=== PATIENT | male | born 1950 | race Caucasian/White ===

== ENCOUNTER 2020-02-22 09:37 | Observation (INO) | payer MEDICARE, SELFPAY ==
[2020-02-22] VITALS (13 sets, daily range): BP systolic 120–149; BP diastolic 67–95; PULSE 65–90; RESP 12–20; TEMP 36.4–36.7; O2SAT 97–100; BMI 30.7
--- NOTE | ~2020-02-22 | MR_ITS ---
EXAMINATION: MR brain/brain stem wo/w con DATE: 02/22/2020 17:29 INDICATION: Stroke TECHNIQUE: Magnetic resonance imaging (MRI) of the brain and brainstem was performed without intraven ous contrast. Sequences included sagittal and axial T1-weighted SE, axial diffusion-weighted FS SE, a xial T2*-weighted GRE, axial T2-weighted FLAIR, and axial T2-weighted FSE. Postcontrast axial and cor onal T1-weighted SE was obtained. Apparent diffusion coefficient (ADC) maps were created. COMPARISON: Head CT dated 02/22/2020 FINDINGS: There are no areas of restricted diffusion to suggest acute infarction. Small old lacunar infarcts at the bilateral lentiform nuclei and anterior limb of the left internal capsule. No intracranial hemor rhage or abnormal intracranial mass lesion. There are scattered areas of nonspecific increased T2-hiwot ghted signal intensity in the cerebral white matter, predominantly involving the deep and periventric ular white matter which is within normal limits for age. There are no intraparenchymal signal abnorma lities seen on the other pulse sequences. The ventricles are symmetric and normal in size. There are no abnormal extra-axial fluid collections. Flow voids are seen in the cerebral arteries on the T2-hiwot ghted sequences consistent with their expected patency. Right vertebral artery is either absent or di minutive. Changes of bilateral intraocular lens replacement. Visualized orbits and soft tissues are unremarkable. There are no areas of abnormal enhancement on the post contrast images. IMPRESSION: 1. No acute intracranial process. 2. Small old lacunar infarcts at the bilateral lentiform nuclei and at the anterior limb of the left internal capsule. 3. Minimal nonspecific scattered periventricular predominant white matter T2 hyperintensity likely se quela of chronic small vessel ischemic disease. Reviewed, dictated and finalized at location A. SPORTATION OFFICER IMPRESSION: 1. No acute intracranial process. 2. Small old lacunar infarcts at the bilateral lentiform nuclei and at the ante rior limb of the left internal capsule. 3. Minimal nonspecific scattered periventricular predominant white matter T2 hy perintensity likely sequela of chronic small vessel ischemic disease.
--- NOTE | ~2020-02-22 | CT_ITS ---
EXAMINATION: CT brain wo con DATE: 02/22/2020 10:57 INDICATION: Dizziness TECHNIQUE: Computed tomography (CT) of the head was performed without intravenous contrast. Sagittal and coronal reconstructions were performed. The mA was adjusted according to patient size. Iterative reconstruction technique was employed. The dose-length product was 605.33 mGy-cm. COMPARISON: None FINDINGS: No acute intracranial hemorrhage, acute infarction or abnormal extra axial fluid collection. Small ol d lacunar infarcts at the left lentiform nucleus and anterior limb of the left internal capsule. Vent ricles are normal and symmetric. No mass/mass effect. Changes of bilateral intraocular lens replaceme nt. The orbits and mastoid air cells are normal. Mild mucosal thickening the bilateral ethmoid sinuse s and an indolent of procedures along the medial dover of the left and right maxillary sinuses. Small amount of intracranial calcified cerebral atherosclerosis at the carotid siphons. IMPRESSION: 1. No acute intracranial process. 2. Couple small old lacunar infarcts at the left lentiform nucleus and anterior limb of the left inte rnal capsule. Reviewed, dictated and finalized at location A. SAFETY FIELD SPECIALIST IMPRESSION: 1. No acute intracranial process. 2. Couple small old lacunar infarcts at the left lentiform nucleus and anterior limb of the left internal capsule.
--- NOTE | ~2020-02-22 | XR_ITS ---
XR chest 1V portable DATE: 02/22/2020 11:24 INDICATION: Dizziness TECHNIQUE: Portable AP upright views on 02/22/2020 at 1116 and 1117 hours COMPARISON: 11/30/2018 PA and lateral chest FINDINGS: Normal heart size. There is aortic tortuosity. No hilar or mediastinal enlargement. No pulmonary infiltrate or consolidation, pleural effusion or pulmonary vascular congestion or pneumo thorax is detected. Osteoarthritic change at the glenohumeral joints and bilateral chronic rotator cuff atrophy. Degenera tive spurring of the thoracic spine. IMPRESSION: No active cardiopulmonary disease Reviewed, dictated and finalized at location A. KER MACHINE OPERATOR
--- NOTE | ~2020-02-22 | US_ITS ---
EXAMINATION: US carotid duplex BI DATE: 02/23/2020 10:16 INDICATION: Infarcts in the basal ganglia. TECHNIQUE: Grayscale, color Doppler, and pulsed Doppler images of the cervical carotid arteries were obtained. The degree of vessel stenosis is placed in one of the following categories: normal, <50%, 5 0-69%, >=70% but less than near-occlusion, near-occlusion, or total occlusion. Note that percent sten osis relative to normal distal artery lumen diameter is indirectly measured from velocity measurement s as described by Brad, et al. Radiology 2003; 229:340-346. COMPARISON: None. FINDINGS: RIGHT: The right common carotid artery (CCA) peak systolic velocity (PSV) is 78 cm/s. The right internal car otid artery (ICA) PSV is 51 cm/s. The right ICA end-diastolic velocity (EDV) is 10 cm/s. The right IC A/CCA PSV ratio is 0.7. Grayscale and color Doppler images yield an estimate of <50% diameter reducti on from plaque in the ICA. There is antegrade flow in the right vertebral artery. LEFT: The left CCA PSV is 75 cm/s. The left ICA PSV is 49 cm/s. The left ICA EDV is 16 cm/s. The left ICA/C CA PSV ratio is 0.7. Grayscale and color Doppler images yield an estimate of <50% diameter reduction from plaque in the ICA. There is antegrade flow in the left vertebral artery. IMPRESSION: 1. <50% stenosis in the right internal carotid artery. 2. <50% stenosis in the left internal carotid artery. Reviewed, dictated and finalized at location B. MAKER
--- NOTE | 2020-02-22 09:51 | ECG_ITS ---
Measurements Intervals [place] Rate: 90 P: 51 SD: 163 QRS: -1 QRSD: 86 T: 43 QT: 338 QTc: 415 Interpretive Statements SINUS RHYTHM EARLY PRECORDIAL R/S TRANSITION PEAKED T WAVES- CONSIDER HYPERKALEMIA OR ISCHEMIA BASELINE ARTIFACT- I, III, AVL, AVF ABNORMAL ECG Electronically Signed On 02-22-2020 10:29:48 BEAD CUTTER by Brandon Cisneros D.O.
[2020-02-22 10:02] LABS: Basophils Absolute Auto 0.1 K/mm3 (0.0-0.1); Basophils Percent Auto 0.9 % (0.2-1.2); Eosinophils Absolute Auto 0.1 K/mm3 (0-0.3); Eosinophils Percent Auto 1.9 % (0-4.4); Hematocrit 44.1 % (42.0-52.0); Hemoglobin 14.9 g/dL (14.0-18.0); Immature Granulocyte Absolute 0.02 K/mm3 (0.00-0.031); Immature Granulocyte Percent A 0.3 % (0-0.5); Lymphocytes Absolute Auto 1.62 K/mm3 (0.9-3.2); Lymphocytes Percent Auto 28.1 % (18.3-44.2); Mean Corpuscular HGB Conc 33.8 g/dl (32-36); Mean Corpuscular Hemoglobin 30.1 pg (26-34); Mean Corpuscular Volume 89.1 fl (80-100); Monocytes Absolute Auto 0.5 K/mm3 (0.1-0.6); Neutrophils Absolute Auto 3.4 K/mm3 (1.3-6.7); Neutrophils Percent Auto 59.8 % (45.5-73.1); Platelet Count Result 188 k/mm3 (150-375); Red Blood Count 4.95 M/mm3 (4.6-6.20); Red Cell Distribution Width 12.5 % (11.5-14.5); White Blood Count 5.8 K/mm3 (4.5-10.0)
[2020-02-22 10:16] LABS: Alanine Aminotransferase 21 U/L (4-50); Albumin Level 4.3 g/dL (3.5-5.1); Alkaline Phosphatase 99 U/L (38-126); Anion Gap 7 mmol/L (8-16); Aspartate Amino Transferase 27 U/L (17-59); Bilirubin,Total 0.8 mg/dL (0.2-1.3); Blood Urea Nitrogen 18 mg/dL (9-20); Calcium 9.1 mg/dL (8.4-10.2); Carbon Dioxide 32 mmol/L (22-30); Chloride 98 mmol/L (98-107); Estimated CRCL calculation 90 ml/min; Estimated Glomerular Filt Rate > 60; Glucose 124 mg/dL (75-110); Potassium 4.6 mmol/L (3.4-5.0); Sodium 137 mmol/L (137-145)
--- NOTE | 2020-02-22 10:42 | ED.DIZZY ---
HPI - Dizziness General Chief Complaint: Dizziness Stated Complaint: Dizzy Time Seen by Provider: 02/22/20 10:02 Source: patient Mode of arrival: ambulatory Limitations: no limitations History of Present Illness HPI Narrative: 69 years old white male presented to the ED because of dizziness, constant all the time, started 4 days ago. Gets worse with movement and intermittent nausea. Patient denies any fever, chills, vomiting, headache, sore throat, chest pain, shortness of breath, back pain, tingling or numbness. Patient lives alone. Patient drove himself to the emergency room. Patient report history of intermittent dizziness. Related Data Home Medications Medication Instructions Recorded Confirmed albuterol sulfate 90 mcg/actuation 1 inhalation INHALATION Q4H 01/31/19 09/13/19 aerosol inhaler duloxetine 20 mg capsule,delayed 20 mg PO BID 01/31/19 09/13/19 release furosemide 20 mg tablet 20 mg PO QAM 01/31/19 09/13/19 gabapentin 300 mg capsule 300 mg PO DAILY 01/31/19 09/13/19 meloxicam 15 mg tablet 15 mg PO DAILY 01/31/19 09/13/19 metoclopramide HCl 10 mg tablet 10 mg PO Q6H PRN 01/31/19 09/13/19 modafinil 200 mg tablet 200 mg PO QAM 01/31/19 09/13/19 omega-3 fatty acids 1,000 mg 1,000 mg PO DAILY 01/31/19 09/13/19 capsule omeprazole 40 mg capsule,delayed 40 mg PO DAILY 01/31/19 09/13/19 release ranitidine HCl 150 mg tablet 150 mg PO DAILY 01/31/19 09/13/19 trazodone 100 mg tablet 50 mg PO BID 01/31/19 09/13/19 atorvastatin 20 mg tablet 20 mg PO DAILY 09/13/19 09/13/19 azelastine 0.15 % (205.5 mcg) 205.5 mcg NASAL DAILY 09/13/19 09/13/19 nasal spray glucosamine sulfate 1,000 mg 2,000 mg PO DAILY cap 09/13/19 09/13/19 capsule lisinopril 10 mg tablet 10 mg PO DAILY 09/13/19 09/13/19 Allergies Allergy/AdvReac Type Severity Reaction Status Date / Time No Known Allergies Allergy Unverified 09/13/19 08:40 Review of Systems Review of Systems: Narrative: CONSTITUTIONAL: Denies fever, chills, or sweats. EYES: Denies visual changes, redness, or discharge. ENT: Denies rhinorrhea, congestion, sore throat, or otalgia. CARDIOVASCULAR: Denies chest pain, palpitations, or edema. RESPIRATORY: Denies cough or dyspnea. GASTROINTESTINAL: Denies abdominal pain, nausea, vomiting, or diarrhea. GENITOURINARY: Denies dysuria or hematuria. SKIN: Denies rash or itching. MUSCULOSKELETAL: Denies back pain, joint pain, or myalgia. NEUROLOGIC: Denies headache, numbness, or weakness. PSYCHIATRIC: Denies anxiety or depression. PMFSH Past Medical History Medical History Diabetes Myoclonus Family History Family History Father Diabetes mellitus Heart disease Mother Heart disease Sibling Cancer Social History Social History Smoking status: Never smoker Second hand tobacco smoke exposure: Yes Gender identity (if verbalized by the patient): Male Exam Narrative: Exam Narrative: General appearance: Well-developed, well-nourished Skin: Normal color Head: Normocephalic, nontraumatic Eyes: Clear conjunctiva ENT: Oropharynx normal, ears normal, nose normal Neck: Supple, nontender Chest and respiratory: Airway patent, no respiratory distress, no accessory muscle use Heart: Regular rate/rhythm Abdomen: Soft, nontender, no organomegaly, quiet bowel sounds Vascular: Normal peripheral pulses, normal capillary refill. Musculoskeletal: Normal range of motion, nontender back Neurologic: Alert and oriented ?3, PORCELAIN BUILDUP ASSISTANT is normal as tested, no gross motor deficit Course Course Emergency Course
[2020-02-22] MEDS: SODIUM CHLORIDE 0.9% IV 1,000 ML 999 ML IV CONT (10:50)
--- NOTE | 2020-02-22 10:51 | PC.NURSE ---
Pt to CT scan via stretcher.
[2020-02-22 11:15] LABS: Troponin I < 0.012 ng/mL (0.000-0.034)
[2020-02-22 11:18] LABS: Add Urine Microscopic? NO; Appearance Urine Clear (Clear); Bilirubin Urine Negative (Negative); Blood Urine Negative (Negative); Color Urine Yellow (Yellow); Glucose Urine UA Negative (Negative); Ketones Urine Negative (Negative); Leukocyte Esterase Ur Negative LEU/UL (Negative); Nitrate Urine Negative (Negative); Protein Urine Negative (Negative); Specific Grav Ur 1.015 (1.001-1.035); Urobilinogen Urine Negative mg/dL (<2.0)
[2020-02-22] MEDS: ASPIRIN 81 MG CHEWABLE TABLET 324 MG PO (13:05)
--- NOTE | 2020-02-22 14:14 | ADMGEN ---
This patient, Emiliano Flores, was admitted to Medical Room 343-01. Patient/family oriented to hospital policies and general routines including ID bracelet, bed and alarms, visiting hours, pain management, procedures, bathroom and other care routines, personal items, smoking policy, room service/diet, and visiting hours. Information on how to activate the Rapid Response Team has been discussed. Patient/Family are encouraged to report perceived risks to care and to ask questions if they do not understand what they are told or what they should do.
--- NOTE | 2020-02-22 15:15 | PM.IMHP ---
H&P: HPI History of Present Illness Date/Time: 02/22/20 15:15 Chief complaint: Dizziness. Narrative: Emiliano Flores is 69-year-old male with hypertension, hyperlipidemia, and findings of old CVAs on brain CT today who presented to the emergency department earlier today via private vehicle from home with complaints of dizziness. As soon as he awoke from sleep on Wednesday he began feeling dizzy, which he further qualifies as vertigo, describing poor balance and feelings of motion when not moving. It seemed to be a bit better on Wednesday however has been nearly constant since Wednesday. Occasionally it seems to be worse when turning his head to the right, however not always. It seems to be somewhat better when lying supine. He has had some slight nausea as well as tinnitus, left greater than right, but he goes on to say that that is not necessarily a new finding. He denies acute auditory and visual changes, headache, recent illness, fever, chills, sweats, focal weakness, paresthesias, dysarthria, and facial droop. He has no known history of stroke however brain CT today showed findings of old strokes. Of note, the patient's EKG had an abnormal reading with mention of peak T-waves suggestive of possible hyperkalemia or ischemia. His potassium level is well within normal limits and he has not had chest pain or exertional chest pain. Review of Systems Review of Systems: Narrative: Twelve systems were reviewed with pertinent positives and negatives as per HPI. No recent cold or flu symptoms. He has idiopathic peripheral neuropathy, mainly in his lower legs which is unchanged. No chest pain, palpitations, or history of cardiac dysrhythmia. He denies vomiting. He has occasional dysphagia and reports a history of EGD and esophageal dilatation. Except as documented, all other systems were reviewed and are negative. [facility] Past Medical History Medical History (Updated 02/22/20 @ 22:17 by Nandini Chavez PA-C) Asthma Benign prostatic hyperplasia Depression with anxiety Dyslipidemia Gastroesophageal reflux disease History of kidney stones Hypertension Narcolepsy Obstructive sleep apnea Compliant with CPAP at nighttime. Restless leg syndrome Seasonal allergies Surgical History Surgical History (Updated 02/22/20 @ 14:46 by Nandini Chavez PA-C) History of left inguinal hernia repair History of lithotripsy Status post excision of lipoma Posterior neck. Family History Family History (Updated 02/22/20 @ 14:46 by Nandini Chavez PA-C) Father Diabetes mellitus Heart disease Mother Heart disease Sibling Leukemia Social History Social History (Updated 02/22/20 @ 22:14 by Nandini Chavez PA-C) Social History: Surrogate decision maker: Susu Hurley, sister. Code status: Full code. Smoking status: Never smoker Second hand tobacco smoke exposure: Yes Alcohol intake: never Drinks per week: 0 Substance use: never Additional living arrangements comments: The patient lives in his own home in [facility]. 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 Gender identity (if verbalized by the patient): Male Spiritual care concerns: No Meds Home Medications and Allergies Home Medications Medication Instructions Recorded Confirmed Type albuterol sulfate 90 mcg/actuation 1 inhalation INHALATION Q4H PRN 01/31/19 02/22/20 History aerosol inhaler duloxetine 20 mg capsule,delayed 20 mg PO BID 01/31/19 02/22/20 History release gabapentin 300 mg capsule 600 mg PO BID 01/31/19 02/22/20 History meloxicam 15 mg tablet 15 mg PO PRN PRN 01/31/19 02/22/20 History modafinil 200 mg tablet 200 mg PO QAM 01/31/19 02/22/20 History omega-3 fatty acids 1,000 mg 1,000 mg PO DAILY 01/31/19 02/22/20 History capsule omeprazole 40 mg capsule,delayed 40 mg PO QMWFSU 01/31/19 02/22/20 History release
[2020-02-22] MEDS: PRAMIPEXOLE 0.125 MG TABLET BY MOUTH (22:04)
[2020-02-22] MEDS: traZODone HCL 50 MG TABLET PO (22:04)
[2020-02-23] VITALS: PULSE 73
[2020-02-23 04:00] VITALS: PULSE 70
[2020-02-23 06:00] VITALS: BP 119/82; PULSE 83; RESP 16; TEMP 36.5; O2SAT 99
[2020-02-23 06:02] LABS: Anion Gap 5 mmol/L (8-16); Blood Urea Nitrogen 13 mg/dL (9-20); Calcium 8.6 mg/dL (8.4-10.2); Carbon Dioxide 32 mmol/L (22-30); Chloride 101 mmol/L (98-107); Estimated CRCL calculation 103 ml/min; Estimated Glomerular Filt Rate > 60; Glucose 95 mg/dL (75-110); Magnesium 2.1 mg/dL (1.6-2.3); Sodium 138 mmol/L (137-145)
[2020-02-23 08:00] VITALS: PULSE 70
--- NOTE | 2020-02-23 08:21 | ECG_ITS ---
Measurements Intervals [place] Rate: 80 P: 51 VA: 161 QRS: 1 QRSD: 90 T: 37 QT: 367 QTc: 424 Interpretive Statements SINUS RHYTHM ATRIAL PREMATURE COMPLEX EARLY PRECORDIAL R/S TRANSITION BASELINE ARTIFACT- V3 BORDERLINE ECG Electronically Signed On 02-23-2020 10:38:38 LOUVER DOOR ASSEMBLER by Brandon Cisneros D.O.
[2020-02-23] MEDS: ASPIRIN 81 MG CHEWABLE TABLET PO (08:29)
[2020-02-23] MEDS: DULoxetine HCL 20 MG CAPSULE.DR PO (08:29)
[2020-02-23] MEDS: PANTOPRAZOLE 40 MG TABLET PO (08:29)
[2020-02-23] MEDS: ATORVASTATIN 20 MG TABLET PO (08:29)
[2020-02-23] MEDS: OMEGA 3 POLYUNSAT FATTY ACIDS 1 GM CAP PO (08:30)
[2020-02-23] MEDS: LOSARTAN POTASSIUM 50 MG TABLET PO (08:30)
[2020-02-23] MEDS: modafiniL (*CRX) 200 MG TABLET PO (08:34)
[2020-02-23 12:00] VITALS: PULSE 94
--- NOTE | 2020-02-23 12:57 | PM.DS ---
DS: Admitting Diagnosis Admitting Diagnosis Admitting Diagnosis: Dizziness. DS: Discharge Diagnosis Discharge Diagnosis (1) Vertigo: Code(s): R42 - Dizziness and giddiness Status: Acute (2) Abnormal EKG: Code(s): R94.31 - Abnormal electrocardiogram [ECG] [EKG] Status: Acute (3) Hypertension: Code(s): I10 - Essential (primary) hypertension Status: Acute (4) Dyslipidemia: Code(s): E78.5 - Hyperlipidemia, unspecified Status: Acute (5) RANDY (obstructive sleep apnea): Code(s): G47.33 - Obstructive sleep apnea (adult) (pediatric) Status: Acute DS: Summary Hospital Course Reason for hospitalization: Emiliano Flores is 69-year-old male with hypertension, hyperlipidemia, and findings of old CVAs on brain CT today who presented to the emergency department earlier today via private vehicle from home with complaints of dizziness. As soon as he awoke from sleep on Wednesday he began feeling dizzy, which he further qualifies as vertigo, describing poor balance and feelings of motion when not moving. It seemed to be a bit better on Wednesday however has been nearly constant since Wednesday. Occasionally it seems to be worse when turning his head to the right, however not always. It seems to be somewhat better when lying supine. He has had some slight nausea as well as tinnitus, left greater than right, but he goes on to say that that is not necessarily a new finding. He denies acute auditory and visual changes, headache, recent illness, fever, chills, sweats, focal weakness, paresthesias, dysarthria, and facial droop. He has no known history of stroke however brain CT today showed findings of old strokes. Of note, the patient's EKG had an abnormal reading with mention of peak T-waves suggestive of possible hyperkalemia or ischemia. His potassium level is well within normal limits and he has not had chest pain or exertional chest pain. Hospital Course: Patient was admitted as observation for evaluation of dizziness. The patient had MRI which demonstrated evidence of prior stroke but known due intercranial process. He a carotid Dopplers with demonstrated less than 50% stenosis bilaterally. On exam patient had reproducible vertigo with left-sided gaze and rotation of the head to the left. Physical therapy with consulted for Sandrine maneuvers. The patient did not have definitive improvement with Sandrine maneuvers but he tolerated the procedure without difficulty. Given his nystagmus and vertigo with position changes benign positional vertigo did was diagnosed. Physical therapy recommended continuing vestibular therapy on discharge. The patient was started on meclizine and discharged with a prescription. Patient's initial EKG did demonstrate peaked T-waves concerning for. The patient's repeat EKG demonstrated resolution of these findings. His electrolyte panel did not demonstrate evidence of hyperkalemia. He did not have evidence of ischemia on serial troponins. Patient had no chest pain or palpitations. He was discharged home on 02/23/2020 in stable condition. Time Spent with Patient Time attestation: Total time spent providing and/or coordinating discharge services: 35 minutes Exam Narrative: Exam Narrative: PHYSICAL EXAM: WEIGHT 86.5 kg BMI 30.8 General: no acute distress, well-developed well-nourished HEENT: mucous membranes are moist, edentulous, pupils are equal and reactive, head is normocephalic atraumatic Respiratory: clear to auscultation bilaterally, no increased work of breathing Cardiovascular: regular rate, regular rhythm, no murmurs Gastrointestinal: soft, nontender, normoactive bowel sounds Skin: non jaundice, no pallor Musculoskeletal: organic chemistry teacher strength equal bilaterally, no clubbing cyanosis or edema Neurological: nystagmus with rotation of the head to the left, cranial nerves otherwise intact, [id number] intact Psychiatric: appropriate mood and affect, pleasa
[2020-02-23] MEDS: MECLIZINE HCL 12.5 MG TABLET PO (13:48)
[2020-02-23] MEDS: MECLIZINE HCL 25 MG TABLET PO (13:51)
--- NOTE | 2020-02-23 22:20 | ECHO_ITS ---
Patient Info Name: Emiliano Flores Age: 69 years : 1950 Gender: Male Ht: 66 in Wt: 200 lbs BSA: 2.09 m2 HR: 90 bpm BP: 119 / 82 mmHg Technical Quality: Fair Exam Date: 02/23/2020 3:58 PM Exam Location: [facility] Pulmonary Exam Room: 343 Patient Status: Inpatient Admit Date: 02/22/2020 Staff Ordering Physician: Nandini Chavez PA-C Floor Installer: Meg Brenner RDCS Attending Provider: Isaak Duran MD Referring Physician: Kathy GARCIA; Exam Type: CA echo doppler color flow Study Info Indications - abnormal ekg Complete two-dimensional, color flow and Doppler transthoracic echocardiogram is performed with contrast to opacify the left ventricle and to improve the deliniation of the left ventricle endocardial borders. Contrast/Agitated Saline Contrast/Ag. Saline: Definity Amount: 1.00 ml Administered By: Tadeo Alcaraz, RN Summary 1. Left ventricular chamber dimension is normal. 2. Definity contrast administered improved wall motion interpretation. 3. Left ventricular systolic function is normal, estimated at 65-70%. 4. The left ventricular diastolic function is grade I diastolic dysfunction. 5. Tissue doppler E/e' is not calculated. 6. There is moderate aortic valve sclerosis. 7. No pulmonary hypertension, estimated pulmonary arterial systolic pressure is 31 mmHg. Left Ventricle Tissue doppler E/e' is not calculated. Definity contrast administered improved wall motion interpretation. Left ventricular chamber dimension is normal. Left ventricular systolic function is normal, estimated at 65-70%. The left ventricular diastolic function is grade I diastolic dysfunction. Right Ventricle Right ventricular chamber dimension is normal. Right ventricular systolic function is normal. Left Atria Left atrial chamber dimension is normal. Right Atria Right atrial chamber dimension is normal. Aortic Valve The aortic valve is trileaflet. There is moderate aortic valve sclerosis. There is no aortic valve stenosis. There is no aortic valve regurgitation. Pulmonic Valve There is no pulmonic regurgitation. Mitral Valve There is no mitral valve stenosis. There is no mitral valve regurgitation. Tricuspid Valve There is no tricuspid valve regurgitation. No pulmonary hypertension, estimated pulmonary arterial systolic pressure is 31 mmHg. Pericardium/Pleural There is no pericardial effusion. Inferior Vena Cava Normal inferior vena cava with >50% collapse upon inspiration consistent with normal right atrial pressure, 5 mmHg. Aorta The aortic root size at the sinus of Valsalva is normal. Left Ventricular Outflow Tract Name Value Normal LVOT 2D LVOT Diameter 2.0 cm LVOT Doppler LVOT Peak Gradient 7 mmHg LVOT Mean Gradient 4 mmHg LVOT VTI 23 cm LVOT VTI/AV VTI Ratio 0.8 LVOT Stroke Volume 73 ml LVOT CO 17.3 l/min LVOT CI
== END 2020-02-23 17:00 | disposition home or self-care (01) ==
LOC: ANHED 10:02 → ANH3MED 14:40
PROVIDERS: Physician Assistant; Admitting Provider Family Medicine; Emergency Provider Emergency Medicine; PCP Emergency Medicine; Visit Provider Internal Medicine
DX: R42 Dizziness and giddiness (principal); R94.31 Abnormal electrocardiogram [ECG] [EKG]; I10 Essential (primary) hypertension; E78.5 Hyperlipidemia, unspecified; G47.33 Obstructive sleep apnea (adult) (pediatric); Z86.73 Personal history of transient ischemic attack (TIA), and cerebral infarction without residual deficits
CPT/HCPCS: 36415; 70450; 70553; 71045; 80048; 80053; 81003; 83735; 84484; 85025; 93005; 93306; 93880; 96360; 97161; 97165; 99285; A9270; A9577; C8929; G0378; J7030; Q9957

== ENCOUNTER 2020-04-09 14:00 | Outpatient (RCR) | payer MEDICARE, SELFPAY ==
--- NOTE | 2020-03-12 15:19 | PTOPEVAL ---
INITIAL PHYSICAL THERAPY EVALUATION and PLAN OF CARE Thank you for referring Emiliano Flores Jr. to [facility].? Emiliano is scheduled to be seen for physical therapy? 1x/week for 4 weeks. Please review, sign, date and return this plan of care CASSIE. I agree with and certify that the following plan of care is medically necessary. Referring Physician Date Admitting Provider: Attending Provider: Jose Hawthorne MD Referring Provider: Krystyna Akers DO *PT Outpatient Evaluation Start: 03/12/20 13:51 Freq: Status: Active Protocol: Document 03/12/20 13:40 ZANE (Rec: 03/12/20 15:10 ZANE [id number]) Therapy Assessment Status Assessment Status Assessment Status Evaluation Outpatient Past Medical History Past Medical History Source of Past Medical History Recalled from Previous Visit, Confirmed with Patient/Family Neurological History Hx Other Neurological Disorders Yes: Neuropathy to feet. Cardiovascular History Hx Hypercholesterolemia Yes Hx Hypertension Yes Respiratory History Hx Asthma Yes Hx Bronchitis Yes Hx Sleep Apnea Yes Gastrointestinal History Hx Gastroesophageal Reflux Disease Yes Hx Hemorrhoids Yes Hx Hernia Yes Genitourinary History Hx Kidney Stones Yes Musculoskeletal History Hx Arthritis Yes: back, both knees worse in L Hematological History Hx Hematological Disorders No Significant History Endocrine History Hx Endocrine Disorders No Significant History HEENT History Hx Cataracts Yes: removed Hx Tonsillectomy Yes Integumentary History Hx Skin Disorders No Significant History Reproductive History Hx Reproductive Disorders No Significant History Psychosocial History Hx Anxiety Yes Hx Depression Yes Pain History Has Past Pain Affected Your Daily Life Yes: Left Knee Anesthesia History Hx Anesthesia Reactions No Significant History Evaluation Information Problem Diagnosis dizziness and giddiness Onset ~ 2 wks ago Subjective Information Had difficulty seeing, falling Query Text:As Reported By Patient/ against dover - spinning Family sensation, felt worse than being drunk Happened initially on a Wednesday, okay on Wednesday, came back on Wednesday, then morning came to emergency department - admitted to . Testing discovered that he had
--- NOTE | 2020-04-09 17:04 | PTOPEVAL ---
PHYSICAL THERAPY DISCHARGE SUMMARY Thank you for referring Emiliano Flores Jr. to [facility].? Emiliano was seen in PT x 5 visits. Gains were made towards goals set and he does not have the dizziness c/o's as he did initially. He is to continue with his HEP of VOR exercises. He is ready for d/c from PT to HEP. I agree with Emiliano's discharge from PT. Referring Physician Date Admitting Provider: Attending Provider: Jose Hawthorne MD Referring Provider: Krystyna Akers DO *PT Outpatient Evaluation Start: 03/12/20 13:51 Freq: Status: Active Protocol: Document 04/09/20 14:12 ZANE (Rec: 04/09/20 14:57 ZANE [email or web address]) Therapy Assessment Status Assessment Status Assessment Status Discharge Evaluation Information Problem Subjective Information Emiliano states that dizziness Query Text:As Reported By Patient/ felt like it was trying to Family come on all day - but didn't . Realizes that he bends over a lot at work. Did see Neurologist and Supervisor Liquefaction - both are going to run more tests. Also Pharmacy District Manager is also going to run tests. Pain Assessment Timing of Pain Assessment Timing of Pain Assessment Pre-Treatment Self Report Self Report Pain Level 0 Pain Score Pain Score 0: Self Report Vestibular Evaluation Vestibular Testing Sitting Head Thrust WNL Vestibular Testing Comments some dizziness with head shaking with fixation - but no nystagmas, head shaking without fixation - some dizziness for a second then went away Vestibular Balance Standing Balance: Firm Surface Eyes Open WNL for 30 Seconds Standing Balance: Firm Surface Eyes WNL Closed for 30 Seconds Standing Balance: Foam Surface Eyes Open WNL for 30 Seconds Standing Balance: Foam Surface Eyes WNL Closed for 30 Seconds Vestibular Balance Comments Dizziness Handicap Inventory - 40 General Exercise General Exercises Exercise Location vestibular - VOR Exercise Description walking - vertical head Query Text:Record Sets, Reps, movements, horizontal head Resistance, and Position movements - no dizziness, no loss of balance With glasses off: VOR 2 - Sitting - 1st trial - A and B ~ 18 apart 100 bps x 30 sec - trouble with technique
== END 2020-04-10 08:16 | disposition home or self-care (01) ==
LOC: ANHPT 14:00
PROVIDERS: PCP Emergency Medicine; Referring Provider Internal Medicine; Visit Provider Internal Medicine
DX: R42 Dizziness and giddiness (principal)
CPT/HCPCS: 97110; 97162

== ENCOUNTER 2020-04-15 13:04 | Outpatient (CLI) | payer MEDICARE, SELFPAY ==
--- NOTE | ~2020-04-15 | CT_ITS ---
EXAMINATION: CTA brain carotid DATE: 04/15/2020 13:31 INDICATION: Stroke. TECHNIQUE: Computed tomographic angiography (CTA) of the head was performed without and with 100 mL O mnipaque-350 intravenous contrast. CTA of the neck was performed with intravenous contrast. Automated exposure control and iterative reconstruction technique were employed. The dose-length product was 1 760.28 mGy-cm. Maximum intensity projection and volume rendered 3D-reconstructions were created by rosie sanches technologist on a separate workstation. COMPARISON: Head CT 02/22/2020, brain MRI 02/22/2020 FINDINGS: HEAD CTA: There are old lacunar infarcts involving the left basal ganglia and anterior limb left inte rnal capsule. There are scattered areas of low attenuation in the cerebral white matter, which is wit hin normal limits for the patient's age. There is no intracranial hemorrhage, acute infarction, or ab normal intracranial mass lesion. The ventricles are normal in size. There are likely changes of ocula r lens replacement surgeries. There is mild mucosal thickening in the ethmoid sinuses. There are trac e bilateral mastoid effusions. Left vertebral artery is dominant. There is no significant stenosis of basilar artery or the posterior cerebral arteries. There is no significant stenosis of the intracran ial internal carotid arteries or anterior or middle cerebral arteries. Anterior communicating artery is normal. The posterior communicating arteries are normal. There is no aneurysm. NECK CTA: There are no pathologically enlarged lymph nodes. There is no significant stenosis of the vertebral arteries. There is plaque in the proximal internal carotid arteries. There is 16% stenosis of the proximal right internal carotid artery relative to normal distal artery lumen diameter (NASCET criteria). There is 24% stenosis of the proximal left internal carotid artery relative to normal dis lenka artery lumen diameter. There is severe cervical and thoracic spondylosis. IMPRESSION: 1. Old infarcts involving the left basal ganglia and anterior limb left internal capsule. 2. 16% stenosis of the proximal right internal carotid artery relative to normal distal artery lumen diameter (NASCET criteria). 3. 24% stenosis of the proximal left internal carotid artery relative to normal distal artery lumen d iameter. Reviewed, dictated and finalized at location A. SHER HAND IMPRESSION: 1. Old infarcts involving the left basal ganglia and anterior limb left interna l capsule. 2. 16% stenosis of the proximal right internal carotid artery relative to ruben l distal artery lumen diameter (NASCET criteria). 3. 24% stenosis of the proximal left internal carotid artery relative to normal distal artery lumen diameter.
[2020-04-15 13:28] LABS: Estimated Glomerular Filt Rate > 60
== END 2020-04-15 13:05 | disposition home or self-care (01) ==
LOC: ANHIMG 13:07
PROVIDERS: PCP Emergency Medicine; Visit Provider Psychiatry & Neurology Neurology
DX: I63.9 Cerebral infarction, unspecified (principal); I65.23 Occlusion and stenosis of bilateral carotid arteries
CPT/HCPCS: 70496; 70498; Q9967

== ENCOUNTER 2020-05-06 08:55 | Outpatient (CLI) | payer MEDICARE, SELFPAY ==
--- NOTE | 2020-05-07 15:57 | WPDPFTINT ---
PFT Interpretation This is a pulmonary function test with pre and post-bronchodilator spirometry, plethysmography and diffusing capacity. The test was performed and results interpreted in accordance with the 2019 and 2005 ATS/ERS Task Force guidelines respectively using the Judah/Brittany reference equations. Findings: Spirometry: The contour of the inspiratory and expiratory flow tracing are normal. The pre bronchodilator FVC is 4.38 L, 115% predicted. The pre bronchodilator FEV1 is 3.58 L, 136% predicted. The FEV1: FVC ratio is 82%. The post bronchodilator FVC is 4.09 L, representing a 7% decrease. The post bronchodilator FEV1 is 3.50 L, representing a 2% decrease. Plethysmography: The total lung capacity is 6.46 L, 116% predicted. The functional residual capacity is 3.45 L, 119% predicted. The residual volume is 2.07 L, 93% predicted. Diffusing capacity: The absolute diffusion capacity is 25.1, 116% predicted. The diffusing capacity corrected for alveolar volume is 4.70, 130% predicted. Impression: The spirometry is normal without evidence of an obstructive abnormality. There is no significant improvement after inhaling a single dose of albuterol. The lung volumes are normal. The diffusing capacity is normal. There are no prior studies for comparison
--- NOTE | 2020-05-07 15:59 | WPDSIXMINUTE ---
Six Minute Walk This is a 6 minutes walk test. The test was performed and interpreted in accordance with the 2014 ERS/ATS task force guidelines. Findings: The patient's resting room air oxygen saturation measured by pulse oximetry was 97% and her heart rate was 91 bpm. Patient ambulated for 305 meters and oxygen saturation remained 90 to 97%. Heart rate at the end of the study was 96 bpm. There are no prior studies for comparison.
== END 2020-05-06 08:56 | disposition home or self-care (01) ==
PROVIDERS: PCP Emergency Medicine; Visit Provider Nurse Practitioner Family
DX: J45.909 Unspecified asthma, uncomplicated (principal); R06.02 Shortness of breath
CPT/HCPCS: 94060; 94375; 94618; 94726; 94729

== ENCOUNTER 2020-07-03 10:23 | Outpatient (CLI) | payer MEDICARE, SELFPAY ==
--- NOTE | 2020-07-03 11:30 | NEURO_ITS ---
Impression: # Complains of foot pain. # Normal nerve conduction study except right superficial peroneal nerve neuropathy. # No Tarsal Tunnel Syndrome. # Normal needle/EMG exam. # Clinical correlation recommended. Nerve Conduction Studies Anti Sensory Summary Table Stim Site NR Peak (ms) P-T Amp (?V) Site1 Site2 Delta-P (ms) Dist (cm) Jayant (m/s) Left Sup Fibular Anti Sensory (Ant Lat Mall) 14 cm 4.3 14.0 14 cm Ant Lat Mall 4.3 16.0 37 Right Sup Fibular Anti Sensory (Ant Lat Mall) NO RESPONSE 14 cm NR 14 cm Ant Lat Mall 16.0 Left Sural Anti Sensory (Lat Mall) Calf 4.0 5.9 Calf Lat Mall 4.0 16.0 40 Right Sural Anti Sensory (Lat Mall) Calf 3.3 18.4 Calf Lat Mall 3.3 16.0 48 Motor Summary Table Stim Site NR Onset (ms) O-P Amp (mV) Site1 Site2 Delta-0 (ms) Dist (cm) Jayant (m/s) Left Lateral Plantar Motor (ADM) Med Mall 5.1 1.9 Right Lateral Plantar Motor (ADM) Med Mall 5.5 0.6 Left Peroneal Motor (Vastus Med) Ankle 4.8 1.2 Popit Ankle 9.6 40.0 42 Popit 14.4 0.7 Right Peroneal Motor (Vastus Med) Ankle 4.5 0.6 Popit Ankle 9.2 39.0 42 Popit 13.7 0.4 Left Tibial Motor Run #1 (Abd Penn Brev) Ankle 5.2 3.7 Knee Ankle 9.7 41.0 42 Knee 14.9 3.1 Right Tibial Motor (Abd Penn Brev) Ankle 4.5 2.1 Knee Ankle 9.8 42.0 43 Knee 14.3 1.8 F Wave Studies NR F-Lat (ms) L-R F-Lat (ms) Left Peroneal (Mrkrs) (EDB) 55.99 1.02 Right Peroneal (Mrkrs) (EDB) 54.97 1.02 Left Tibial (Mrkrs) (Abd Hallucis) 56.19 0.29 Right Tibial (Mrkrs) (Abd Hallucis) 55.91 0.29 EMG Side Muscle Nerve Root Ins Act Fibs Amp Dur Recrt Comment Right AntTibialis Dp Br Fibular L4-5 Nml Nml Nml Nml Nml Right Gastroc Tibial S1-2 Nml Nml Nml Nml Nml Right Fibularis Long Sup Br Fibular L5-S1 Nml Nml Nml Nml Nml Right Flex Dig Long Tibial L5-S2 Nml Nml Nml Nml Nml Right Ext Dig Brev Dp Br Fibular L5, S1 Nml Nml Nml Nml Nml Left AntTibialis Dp Br Fibular L4-5 Nml Nml Nml Nml Nml Left Gastroc Tibial S1-2 Nml Nml Nml Nml Nml Left Fibularis Long Sup Br Fibular L5-S1 Nml Nml Nml Nml Nml Left Flex Dig Long Tibial L5-S2 Nml Nml Nml Nml Nml Left Ext Dig Brev Dp Br Fibular L5, S1 Nml Nml Nml Nml Nml Right QuadratusFem QuadFemoris L4-5, S1 Nml Nml Nml Nml Nml Left QuadratusFem QuadFemoris L4-5, S1 Nml Nml Nml Nml Nml MTDD
== END 2020-07-03 10:24 | disposition home or self-care (01) ==
PROVIDERS: PCP Emergency Medicine; Visit Provider Psychiatry & Neurology Neurology
DX: M79.606 Pain in leg, unspecified (principal); R26.9 Unspecified abnormalities of gait and mobility
CPT/HCPCS: 95886; 95911

== ENCOUNTER 2020-10-25 13:34 | Outpatient (CLI) | payer MEDICARE, SELFPAY ==
--- NOTE | ~2020-10-25 | US_ITS ---
EXAMINATION: US pelvic limited INDICATION: Benign prostatic hyperplasia TECHNIQUE: High-resolution ultrasound of the pelvis is performed. COMPARISON: None available FINDINGS: The bladder wall thickness is upper limits of normal measuring 4 mm. Prevoid volume is 428 cc. Postvoid volume is 3 cc. No bladder mass is identified. IMPRESSION: 1. Borderline wall thickening of the urinary bladder. Normal voiding. Reviewed, dictated and finalized at location B.
== END 2020-10-25 13:35 | disposition home or self-care (01) ==
PROVIDERS: PCP Emergency Medicine; Visit Provider Emergency Medicine
DX: N40.0 Benign prostatic hyperplasia without lower urinary tract symptoms (principal)
CPT/HCPCS: 76857

== ENCOUNTER 2021-05-21 09:23 | Outpatient (CLI) | payer MEDICARE, SELFPAY ==
[2021-05-21 10:29] LABS: Add Urine Microscopic? NO; Appearance Urine Clear (Clear); Bilirubin Urine Negative (Negative); Blood Urine Negative (Negative); Color Urine Straw (Yellow); Glucose Urine UA Negative (Negative); Ketones Urine Negative (Negative); Leukocyte Esterase Ur Negative LEU/UL (NEGATIVE); Nitrate Urine Negative (Negative); Protein Urine Negative (Negative); Specific Grav Ur 1.006 (1.001-1.035); Urobilinogen Urine Negative mg/dL (<2.0)
[2021-05-21 10:36] LABS: Hematocrit 44.9 % (42.0-52.0); Hemoglobin 14.8 g/dL (14.0-18.0); Mean Corpuscular Volume 87.9 fl (80-100); Mean Platelet Volume 9.1 fl (7.4-10.4); Platelet Count Result 187 k/mm3 (150-375); Red Blood Count 5.11 M/mm3 (4.6-6.20); Red Cell Distribution Width 13.2 % (11.5-14.5); White Blood Count 6.7 K/mm3 (4.5-10.0)
[2021-05-21 10:41] LABS: Alanine Aminotransferase 25 U/L (4-50); Alkaline Phosphatase 104 U/L (38-126); Anion Gap 4 mmol/L (8-16); Aspartate Amino Transferase 31 U/L (17-59); Bilirubin,Total 0.7 mg/dL (0.2-1.3); Blood Urea Nitrogen 16 mg/dL (9-20); Calcium 8.7 mg/dL (8.4-10.2); Carbon Dioxide 33 mmol/L (22-30); Chloride 100 mmol/L (98-107); Cholesterol 140 mg/dL (0-200); Estimated Glomerular Filt Rate > 60; Glucose 111 mg/dL (65-110); HDL Direct 38 mg/dL; Potassium 4.5 mmol/L (3.4-5.0); Sodium 137 mmol/L (137-145); Triglycerides 71 mg/dL (<150)
[2021-05-21 10:51] LABS: LDL Cholesterol Direct 81 mg/dL
[2021-05-21 11:11] LABS: Prostate Specific Antigen 0.5 ng/mL (< OR = 4.0)
[2021-05-21 11:30] LABS: Free T4 Free Thyroxine 0.87 ng/mL (0.78-2.19)
[2021-05-21 11:49] LABS: Hemoglobin A1C 5.3 % (<5.7)
[2021-05-21 12:59] LABS: Creatinine Urine 39.6 mg/dL
[2021-05-21 13:06] LABS: MALB Creatinine Ratio < 15.2 mg/g (0-30); Microalbumin Urine Random < 6.0 mg/L (0-16.7)
== END 2021-05-21 09:24 | disposition home or self-care (01) ==
LOC: ANHLAB 09:54
PROVIDERS: PCP Emergency Medicine; Visit Provider Emergency Medicine
DX: Z12.5 Encounter for screening for malignant neoplasm of prostate (principal); D64.9 Anemia, unspecified; F41.9 Anxiety disorder, unspecified; F32.9 Major depressive disorder, single episode, unspecified; I10 Essential (primary) hypertension; K21.00 Gastro-esophageal reflux disease with esophagitis, without bleeding; E78.5 Hyperlipidemia, unspecified; N40.0 Benign prostatic hyperplasia without lower urinary tract symptoms; E11.9 Type 2 diabetes mellitus without complications
CPT/HCPCS: 36415; 80053; 80061; 81003; 82043; 83036; 84153; 84439; 84443; 85027; G0103

== ENCOUNTER 2021-06-06 08:17 | Outpatient (CLI) | payer MEDICARE, SELFPAY ==
--- NOTE | ~2021-06-06 | MR_ITS ---
EXAMINATION: MR brain/brain stem wo/w con EXAM DATE: 06/06/2021 09:55 INDICATION: G25.9 - Extrapyramidal and movement disorder, unspecified . TECHNIQUE: Magnetic resonance imaging (MRI) of the brain/brain stem obtained without contrast. Sagit lenka T1, axial diffusion, gradient echo (T2*), T1, T2, FLAIR sequences obtained. Patient was then inj ected with 18 cc intravenous Multihance contrast. Axial and coronal postcontrast T1 weighted sequence s obtained. Comparison is made to prior examination from 02/22/2020. FINDINGS: There are no areas of restricted diffusion to suggest acute infarction. Bilateral old lenti form nuclei infarctions and in the anterior limb of the left internal capsule. There is no acute hemo rrhage seen on the T2*, a hemosiderin sensitive sequence. No intraparenchymal brain mass lesion. The re are scattered periventricular and subcortical T2/FLAIR signal hyperintensities, nonspecific but pr obably related to small vessel ischemic disease (microangiopathy). There are no extra-axial collect ions. Flow voids are seen in the cerebral arteries on the T2-weighted sequences consistent with thei r expected patency. The orbits are unremarkable. Soft tissue is unremarkable. IMPRESSION: 1. No acute intracranial findings. 2. Old lacunar infarction. 3. Scattered microangiopathy. Reviewed, dictated and finalized at location G.
== END 2021-06-06 08:18 | disposition home or self-care (01) ==
PROVIDERS: PCP Emergency Medicine; Visit Provider Psychiatry & Neurology Neurology
DX: G25.9 Extrapyramidal and movement disorder, unspecified (principal)
CPT/HCPCS: 70553; A9577

== ENCOUNTER 2021-06-09 08:20 | Outpatient (CLI) | payer MEDICARE, SELFPAY ==
--- NOTE | 2021-06-14 14:23 | WPDNEUROLOGY ---
Neurology EEG Report General Information Date of Study: 06/09/21 TEST eeg DIAGNOSIS Movement Disorder CONDITION OF RECORDING awake drowsy and sleep EEG NUMBER [id number] CLINICAL HISTORY patient reports that about 6 months ago he started noticing abnormal movements of his tongue and is now experiencing arm and leg jerks twitches along with the tongue movement EEG DESCRIPTION background rhythm consists of low-voltage 15 to 18 hertz per 2nd beta admixed with low to medium voltage 6 to 7 hertz per 2nd theta during drowsiness. Bilateral symmetrical sleep activity seen during sleep. Intermittent EKG artifact is noted. Hyperventilation not done. Photic stimulation produces normal drive. Non paroxysmal. Nonfocal. Nonlateralizing. IMPRESSION No significant abnormalities noted
== END 2021-06-09 08:21 | disposition home or self-care (01) ==
PROVIDERS: PCP Emergency Medicine; Visit Provider Psychiatry & Neurology Neurology
DX: G25.9 Extrapyramidal and movement disorder, unspecified (principal)
CPT/HCPCS: 95816

== ENCOUNTER 2022-01-30 10:23 | Outpatient (CLI) | payer MEDICARE, SELFPAY ==
--- NOTE | ~2022-01-30 | US_ITS ---
EXAMINATION: US carotid duplex BI DATE: 01/30/2022 11:52 INDICATION: Cerebral infarction TECHNIQUE: Grayscale, color Doppler, and pulsed Doppler images of the cervical carotid arteries were obtained. The degree of vessel stenosis is placed in one of the following categories: normal, <50%, 5 0-69%, >=70% but less than near-occlusion, near-occlusion, or total occlusion. Note that percent sten osis relative to normal distal artery lumen diameter is indirectly measured from velocity measurement s as described by Brad, et al. Radiology 2003; 229:340-346. Notes: Normal: Peak systolic velocity <125 centimeters/sec and no plaque <50%. Peak systolic velocity <125 ( EDV <40; ICA/CCA PSV ratio <2.0; used these factors only a tandem lesions or low cardiac output or co ntralateral disease) 50-69 %: PSV 125-230 (EDV 40-100; ratio 2-4) >= 70% but less than near occlusion: PSV greater than 230 (EDV > 100; ratio> 4.0) Near Occlusion: PSV that is variable; markedly narrowed lumen Occlusion: Absent flow on color/spectral Doppler and no lumen on frances scale. COMPARISON: None. FINDINGS: RIGHT: The right common carotid artery (CCA) peak systolic velocity (PSV) is 75 cm/s. The right internal car otid artery (ICA) PSV is 45 cm/s. The right ICA end-diastolic velocity (EDV) is 19 cm/s. The right IC A/CCA PSV ratio is 0.6. The external carotid artery (ECA) PSV is 43 cm/s. There is antegrade flow in the right vertebral artery. LEFT: The left CCA PSV is 68 cm/s. The left ICA PSV is 53 cm/s. The left ICA EDV is 18 cm/s. The left ICA/C CA PSV ratio is 0.8. The ECA PSV is 50 cm/s. There is antegrade flow in the left vertebral artery. IMPRESSION: 1. Less than 50% stenosis in the right internal carotid artery by sonographic criteria. 2. Less than 50% stenosis in the left internal carotid artery by sonographic criteria. Reviewed, dictated and finalized at location A. LENE PLANT OPERATOR IMPRESSION: 1. Less than 50% stenosis in the right internal carotid artery by sonographic bruce jiménez. 2. Less than 50% stenosis in the left internal carotid artery by sonographic darling calzada.
== END 2022-01-30 10:24 | disposition home or self-care (01) ==
PROVIDERS: PCP Emergency Medicine; Visit Provider Psychiatry & Neurology Neurology
DX: I63.9 Cerebral infarction, unspecified (principal); I65.23 Occlusion and stenosis of bilateral carotid arteries
CPT/HCPCS: 93880

== ENCOUNTER 2022-07-09 08:21 | Outpatient (CLI) | payer MEDICARE, SELFPAY ==
--- NOTE | ~2022-07-09 | XR_ITS ---
EXAMINATION: XR lumbar spine 2-3V DATE: 07/09/2022 08:41 INDICATION: Bilateral foot numbness TECHNIQUE: Anteroposterior and lateral views of the lumbar spine, and cone-down lateral view of the l umbosacral junction were obtained. COMPARISON: 01/10/2019 FINDINGS: There are 2 mm of chronic retrolisthesis of L3 on L4 and 4 mm of chronic anterolisthesis of L4 on L5. There is unchanged severe loss of intervertebral disc space height throughout the lumbar s pine. There is severe facet joint osteoarthritis. No fracture is identified. Small degenerative osteo phytes project from the anterior endplates of multiple vertebral bodies. There is mild osteoarthritis of the right hip. IMPRESSION: 1. Severe lumbar spondylosis without acute findings or significant interval change. Reviewed, dictated and finalized at location L. IMPRESSION: 1. Severe lumbar spondylosis without acute findings or significant interval miguelangel nge.
== END 2022-07-09 08:22 | disposition home or self-care (01) ==
PROVIDERS: PCP Emergency Medicine; Visit Provider Emergency Medicine
DX: R20.2 Paresthesia of skin (principal); M47.896 Other spondylosis, lumbar region
CPT/HCPCS: 72100

== ENCOUNTER 2022-10-28 13:47 | Outpatient (CLI) | payer MEDICARE, SELFPAY ==
--- NOTE | ~2022-10-28 | DEXA_ITS ---
Bone Density Report Name: TERESA BERTRAND Age: 72 Sex: Male Ethnicity: White Date of : 1950 Indication: screening for osteoporosis; height loss; Referring Provider: LUAN GARCIA Study: Bone densitometry was performed. Exam Date: October 28, 2022 Accession number: [id number] Bone Density: Region BMD T-score Z-score Classification AP Spine(L1-L4) 1.454 3.3 4.2 Normal Femoral Neck (Left) 0.765 -1.2 0.0 Osteopenia Total Hip (Left) 0.872 -1.1 -0.4 Osteopenia Femoral Neck (Right) 0.729 -1.5 -0.3 Osteopenia Total Hip (Right) 0.859 -1.1 -0.4 Osteopenia Total Hip Mean 0.866 -1.1 -0.4 Osteopenia World Health Organization criteria for BMD impression classify patients as: Normal (T-score at or above -1.0), Osteopenia (T-score between -1.0 and -2.5), or Osteoporosis (T-score at or below -2.5). 10-year Fracture Risk(1): Major Osteoporotic Fracture 5.9% Hip Fracture 1.3% Reported Risk Factors: [place] (), Neck BMD=0.729, BMI=33.9 (1) FRAX(R) Version 3.08. Fracture probability calculated for an untreated patient. Fracture probability may be lower if the patient has received treatment. Previous Exams: Region Exam Age BMD T-score BMD Change BMD Change Date g/cm2 vs Baseline vs Previous AP Spine (L1-L4) 10/28/2022 72 1.454 3.3 -0.060 (-3.9%) -0.060 (-3.9%) 04/20/2017 66 1.514 3.8 Total Hip(Left) 10/28/2022 72 0.872 -1.1 -0.254 (-22.6% -0.254 (-22.6% 04/20/2017 66 1.127 0.6 Total Hip(Right) 10/28/2022 72 0.859 -1.1 -0.214 (-19.9% -0.214 (-19.9% 04/20/2017 66 1.073 0.3 *Denotes significance at 95% confidence level, LSC for AP Spine = 0.022 g/cm2, LSC for Total Hip = 0.027 g/cm2 Clinical Information Provided by Patient: Patient maximum height was 68 No regular weight bearing exercise Impression: The patient has low bone mass, based on the Right Femoral Neck T-score. The patient has an estimated ten-year risk of hip fracture of 1.3% and an estimated ten-year risk of major fracture of 5.9%, based on the WHO FRAX algorithm. The BMD for the AP Spine (L1-L4) decreased, changing by -3.9% since the last DXA exam. The BMD for the Total Hip(Left) decreased, changing by -22.6% since the last DXA exam. The BMD for the Total Hip(Right) decreased, changing by -19.9% since the last DXA exam. Discussion: BONE DENSITY IS LOW AT ONE OR MORE SKELETAL SITES. This patient's lowest T-score is low at one or more skele
== END 2022-10-28 13:48 | disposition home or self-care (01) ==
LOC: ANHIMG 13:49
PROVIDERS: PCP Emergency Medicine; Visit Provider Emergency Medicine
DX: M19.90 Unspecified osteoarthritis, unspecified site (principal); M85.89 Other specified disorders of bone density and structure, multiple sites
CPT/HCPCS: 77080

== ENCOUNTER 2022-11-05 07:38 | Outpatient (CLI) | payer MEDICARE, SELFPAY ==
--- NOTE | ~2022-11-05 | XR_ITS ---
EXAMINATION: XR chest 2V DATE: 11/05/2022 08:35 INDICATION: Hypertension. Preop. TECHNIQUE: Frontal and lateral views of the chest were obtained. COMPARISON: Chest single view 02/22/2020 FINDINGS: There is no pneumonia, pleural effusion, or pneumothorax. The heart size is normal. IMPRESSION: 1. No acute cardiopulmonary disease. Reviewed, dictated and finalized at location A.
--- NOTE | 2022-11-05 07:59 | ECG_ITS ---
Measurements Intervals [place] Rate: 78 P: 37 OK: 155 QRS: -3 QRSD: 94 T: 19 QT: 360 QTc: 412 Interpretive Statements SINUS RHYTHM COMPARED TO ECG 02/23/2020 09:37:19 NO SIGNIFICANT CHANGES Electronically Signed On 11-05-2022 11:01:09 CDT by Alphonse White M.D.
[2022-11-05 08:21] LABS: Basophils Absolute Auto 0.1 K/mm3 (0.0-0.1); Basophils Percent Auto 0.7 % (0.2-1.2); Eosinophils Absolute Auto 0.2 K/mm3 (0-0.3); Hematocrit 41.5 % (42.0-52.0); Hemoglobin 13.4 g/dL (14.0-18.0); Immature Granulocyte Absolute 0.03 K/mm3 (0.00-0.031); Immature Granulocyte Percent A 0.4 % (0-0.5); Lymphocytes Absolute Auto 1.87 K/mm3 (0.9-3.2); Lymphocytes Percent Auto 26.9 % (18.3-44.2); Mean Corpuscular HGB Conc 32.3 g/dl (32-36); Mean Corpuscular Hemoglobin 29.8 pg (26-34); Mean Corpuscular Volume 92.2 fl (80-100); Mean Platelet Volume 9.1 fl (7.4-10.4); Monocytes Absolute Auto 0.6 K/mm3 (0.1-0.6); Monocytes Percent Auto 9.2 % (2.6-8.5); Neutrophils Absolute Auto 4.1 K/mm3 (1.3-6.7); Neutrophils Percent Auto 59.8 % (45.5-73.1); Platelet Count Result 195 k/mm3 (150-375); Red Cell Distribution Width 12.6 % (11.5-14.5); White Blood Count 6.9 K/mm3 (4.5-10.0)
[2022-11-05 08:26] LABS: Anion Gap 3 mmol/L (8-16); Blood Urea Nitrogen 17 mg/dL (9-20); Calcium 8.7 mg/dL (8.4-10.2); Carbon Dioxide 35 mmol/L (22-30); Chloride 97 mmol/L (98-107); Estimated Glomerular Filt Rate > 60; Glucose 94 mg/dL (65-110); Potassium 4.6 mmol/L (3.4-5.0); Sodium 135 mmol/L (137-145)
== END 2022-11-05 07:39 | disposition home or self-care (01) ==
LOC: ANHSURGERY 07:44
PROVIDERS: PCP Emergency Medicine; Visit Provider Surgery
DX: K40.90 Unilateral inguinal hernia, without obstruction or gangrene, not specified as recurrent (principal)
CPT/HCPCS: 36415; 71046; 80048; 85025; 86850; 86900; 86901; 93005

== ENCOUNTER 2022-11-11 01:07 | Day surgery (SDC) | payer MEDICARE, SELFPAY ==
--- NOTE | 2022-10-29 09:55 | PC.NURSE ---
Report to the Outpatient Waiting Room, entrance under the green pavilion located off [facility], at time __0600 on date __11/11/22 . Planned Procedure Time: _0730 . Time changes happen often and if your time is changed the preop area will call you the afternoon before. - You and your visitor will be asked to self-screen and do not enter if you have any COVID symptoms. - A mask is optional within the hospital at this time. Patients may have clear liquids (water, carbonated beverages, clear teas, apple juice) until 3 hours prior to surgery with a maximum of 20 ounces. - No food from midnight until time of surgery - Infants may have breast milk until 4 hours before surgery, infant formula 6 hours prior to surgery. - Children will be allowed to drink immediately following surgery. If applicable, please bring a bottle or sippy cup to assist with drinking. Juice, water, soda, and popsicles are readily available. For infants on formula, please bring formula the day of surgery. Pacifiers are allowed. HIBICLENS SHOWER MORNING OF SURGERY Take the following medications with a SIP of water the morning of surgery: ___DULOXETINE,GABAPENTIN,_PRIMIDONE DO NOT STOP ANY OF YOUR OTHER PRESCRIPTION MEDICATIONS PRIOR TO SURGERY ?EXCEPT THE FOLLOWING Medications to discontinue per physician ____ALL VITAMINS AND SUPPLEMENTS 3 DAYS PRE OP.LAST DOSE 11/07/22 Please no make-up, nail syriac, hairspray, perfume, deodorant, or body powder the day of surgery. No jewelry (including any body piercings) or valuables the day of surgery, leave them at home. Please take a shower or bath the night before, or the morning of, surgery with an antibacterial soap. Wear comfortable, loose fitting clothing. Children are encouraged to wear pajamas. - Jewelry must be removed prior to entering the operating room. Rings and piercings that are not removed may be cut off. - The hospital will not accept responsibility for valuables. - Please leave all valuables, including medications, at home the day of surgery. If you are going home after surgery, a licensed corrugated fastener driver must drive you home. - NO public transportation without another adult if you receive anesthesia. - We recommend that an adult stay with you for 24 hours following discharge. - We also recommend that you do not drive, make important decision, drink alcoholic beverages, or take any drugs that were not prescribed by your health care provider for at least 24 hours after your discharge time. For Pediatric surgeries, we recommend two adults accompany the child home. Follow any additional instructions given to you from your surgeon. If you or anyone in your household have experienced Covid symptoms in the past week, please notify your surgeon or the nurse liaison at the phone number below for possible testing. Telephone instructions given to PATIENT and asked if any additional questions and then verbalized understanding. Patient advised to call surgeon office or pre surgery nurse liaison [phone] if any additional questions.
[2022-10-29 10:07] VITALS: BMI 32.9
--- NOTE | 2022-11-10 08:00 | PM.SD2 ---
Same Day Admit/Disch: HPI History of Present Illness Chief complaint: right inguinal hernia Narrative: Emiliano Flores Jr. is a 72 year old male who had a robotic laparoscopic repair of left inguinal hernia in 2019. He was seen by his accounting manager assistant controller, Dr. Contreras, and found to have a right inguinal hernia. It was examined in the office and his examination showed a right inguinal hernia that was reducible. He is taken to surgery now for robotic laparoscopic repair of right inguinal hernia under anesthesia. [facility] Past Medical History Medical History (Updated 11/11/22 @ 06:44 by Jon Larkin DO) Asthma Benign prostatic hyperplasia Depression with anxiety Dyslipidemia Gastroesophageal reflux disease History of kidney stones Hypertension Narcolepsy Obstructive sleep apnea Compliant with CPAP at nighttime. Restless leg syndrome Seasonal allergies TIA (transient ischemic attack) x3 Surgical History Surgical History History of left inguinal hernia repair History of lithotripsy Status post excision of lipoma Posterior neck. Family History Family History Father Diabetes mellitus Heart disease Mother Heart disease Sibling Leukemia Father Diabetes mellitus, Onset Age: 85 Acute myocardial infarction, Onset Age: 85 Mother Diabetes mellitus, Onset Age: 87 Acute myocardial infarction, Onset Age: 87 Sibling Family history of malignant neoplasm Other Family history of cardiovascular disease Family history of congenital heart disease Hypertension Social History Social History Social History: Surrogate decision maker: Susu OSheaMyles, sister. Code status: Full code. Smoking status: Never smoker Second hand tobacco smoke exposure: Yes Alcohol intake: never Drinks per week: 0 Substance use: never Substance use type: does not use Lack of Transportation: No Lack of Food: Sometimes True Current Housing: I Have Housing Concerned About Future Housing: Decline to Answer Difficulty Paying Gas/Electric Bills: YES Difficulty Paying for Meds: No Currently Unemployed: No Education: High School Diploma/GED Difficulty w/ Childcare or Family Care: No Living arrangements: alone Additional living arrangements comments: The patient lives in his own home in [facility]. 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 Gender identity (if verbalized by the patient): Male Spiritual care concerns: No Same Day Admit/Disch: Med Pre-admit Medications Home Medications Medication Instructions Recorded Confirmed Type duloxetine 20 mg capsule,delayed 20 mg PO BID 01/31/19 11/11/22 History release modafinil 200 mg tablet 200 mg PO QAM 01/31/19 10/29/22 History omeprazole 40 mg capsule,delayed 40 mg PO QMWFSU 01/31/19 10/29/22 History release trazodone 100 mg tablet 50 mg PO HS 01/31/19 10/29/22 History atorvastatin 20 mg tablet 20 mg PO DAILY 09/13/19 10/29/22 History losartan 50 mg tablet 50 mg PO DAILY 02/22/20 10/29/22 History aspirin 81 mg chewable tablet 81 mg PO DAILY@0800 30 days #30 02/23/20 10/29/22 Rx (Children's Aspirin) tabs pramipexole 0.5 mg tablet See Rx Instructions .Route 06/11/22 10/29/22 Rx .COMPLEX #45 tabs gabapentin 300 mg capsule See Rx Instructions .Route 09/09/22 11/11/22 Rx .COMPLEX #180 caps primidone 50 mg tablet See Rx Instructions .Route 09/09/22 11/11/22 Rx .COMPLEX #90 tabs ascorbic acid (vitamin C) 500 mg 500 mg PO DAILY 10/29/22 11/11/22 History capsule cevimeline 30 mg capsule 30 mg PO TID 10/29/22 10/29/22 History cholecalciferol (vitamin D3) 125 125 mcg PO DAILY 10/29/22 11/11/22 History mcg (5,000 unit) capsule cyanocobalamin (vi
[2022-11-11] VITALS (7 sets, daily range): BP systolic 108–122; BP diastolic 63–72; PULSE 70–89; RESP 14–24; TEMP 36.8–36.9; O2SAT 98–100; BMI 33.2
--- NOTE | 2022-11-11 06:40 | WPDANESEPPF ---
Anes - Initial Pre Proc Eval Procedure: Operation Date: 11/11/22 07:30 Proposed Procedures p Robotic Laparoscopic Right Inguinal Hernia Repair - Victorino Enriquez MD Date/Time: 11/11/22 06:40 Surgeon: Victorino Enriquez MD Pre Op Diagnosis: right inguinal hernia Patient Data Age: 72 Gender: M Height: 1.68 m Weight: 92.55 kg Allergies Allergy/AdvReac Type Severity Reaction Status Date / Time No Known Allergies Allergy Verified 11/11/22 06:12 Home Medications Medication Instructions Recorded Confirmed Type duloxetine 20 mg capsule,delayed 20 mg PO BID 01/31/19 11/11/22 History release modafinil 200 mg tablet 200 mg PO QAM 01/31/19 10/29/22 History omeprazole 40 mg capsule,delayed 40 mg PO QMWFSU 01/31/19 10/29/22 History release trazodone 100 mg tablet 50 mg PO HS 01/31/19 10/29/22 History atorvastatin 20 mg tablet 20 mg PO DAILY 09/13/19 10/29/22 History losartan 50 mg tablet 50 mg PO DAILY 02/22/20 10/29/22 History aspirin 81 mg chewable tablet 81 mg PO DAILY@0800 30 days #30 02/23/20 10/29/22 Rx (Children's Aspirin) tabs pramipexole 0.5 mg tablet See Rx Instructions .Route 06/11/22 10/29/22 Rx .COMPLEX #45 tabs gabapentin 300 mg capsule See Rx Instructions .Route 09/09/22 11/11/22 Rx .COMPLEX #180 caps primidone 50 mg tablet See Rx Instructions .Route 09/09/22 11/11/22 Rx .COMPLEX #90 tabs ascorbic acid (vitamin C) 500 mg 500 mg PO DAILY 10/29/22 11/11/22 History capsule cevimeline 30 mg capsule 30 mg PO TID 10/29/22 10/29/22 History cholecalciferol (vitamin D3) 125 125 mcg PO DAILY 10/29/22 11/11/22 History mcg (5,000 unit) capsule cyanocobalamin (vitamin B-12) 5,000 mcg PO DAILY 10/29/22 11/11/22 History 5,000 mcg capsule magnesium 250 mg tablet 250 mg PO DAILY 10/29/22 11/11/22 History meloxicam 15 mg tablet 15 mg PO DAILY 10/29/22 10/29/22 History mirabegron 50 mg tablet,extended 50 mg PO QAM 10/29/22 10/29/22 History release 24 hr (Myrbetriq) omega-3 fatty acids 1,000 mg PO DAILY 10/29/22 11/11/22 History tamsulosin 0.4 mg capsule 0.4 mg PO HS 10/29/22 10/29/22 History Patient hx anesthesia problems: none Family hx anesthesia problems: none Results Review: All pre-operative results and documents have been reviewed as part of the pre-operative evaluation. [facility] Past Medical History Medical History (Updated 11/11/22 @ 06:44 by Jon Larkin DO) Asthma Benign prostatic hyperplasia Depression with anxiety Dyslipidemia Gastroesophageal reflux disease History of kidney stones Hypertension Narcolepsy Obstructive sleep apnea Compliant with CPAP at nighttime. Restless leg syndrome Seasonal allergies TIA (transient ischemic attack) x3 Surgical History Surgical History History of left inguinal hernia repair History of lithotripsy Status post excision of lipoma Posterior neck. Family History Family History Father Diabetes mellitus Heart disease Mother Heart disease Sibling Leukemia Father Diabetes mellitus, Onset Age: 85 Acute myocardial infarction, Onset Age: 85 Mother Diabetes mellitus, Onset Age: 87 Acute myocardial infarction, Onset Age: 87 Sibling Family history of malignant neoplasm Other Family history of cardiovascular disease Family history of congenital heart disease Hypertension Social History Social History Social History: Surrogate decision maker: Susu Hurley, sister. Code status: Full code. Smoking status: Never smoker Second hand tobacco smoke exposure: Yes Alcohol intake: never Drinks per week: 0 Substance use: never Substance use type: does not use Lack of Transportation: No Lack of Food: Sometimes True Current Housing: I Have Housing Concerned About Future Housing: Decline to Answer
[2022-11-11] MEDS: LACTATED RINGERS 1,000 ML 30 ML IV CONT ×2 (06:50→09:43)
[2022-11-11] MEDS: ACETAMINOPHEN 500 MG TABLET 1000 MG PO (07:13)
[2022-11-11] MEDS: KETOROLAC 15 MG/ML VIAL (*BKC) IV PUSH (07:15)
--- NOTE | 2022-11-11 07:15 | WPDHPUPDATE1 ---
History and Physical Update Update Date/Time: 11/11/22 07:15 History and Physical has been reviewed, including an updated exam of the patient. There are NO changes in the patient's condition. Risks, benefits, and alternatives have been discussed and questions answered. Patient agrees to proceed with procedure.
[2022-11-11] MEDS: ceFAZolin 2 GM/D5W 50 ML 2 GM/50 ML BAG IVPB (07:34)
[2022-11-11] MEDS: BUPIVACAINE/EPINEPHRINE 0.5% 50 ML VIAL INFILTRATE (09:31)
--- NOTE | 2022-11-11 09:52 | W.PM.PROC2 ---
Procedure Note - Detailed Date of Procedure 11/11/22 Pre-op Diagnosis right inguinal hernia Post-op Diagnosis Same Procedure Performed Robotic laparoscopic repair right inguinal hernia with mesh Surgeon Victorino Enriquez MD Stripe Marker Ben CARDOSO Anesthesia General and Local (0.25% Marcaine with epinephrine) Indications Patient had a robotic repair of left inguinal hernia for years ago. He is noticing a bulge in the right groin it is painful with coughing and lifting. He was found to have a right inguinal hernia and is taken to surgery now for robotic repair Findings Patient had both a direct and an indirect hernia. There was scar tissue medially in conjunction with the mesh placed at his previous hernia repair. Otherwise, no significant findings were noted. Description of Procedure Patient was taken to surgery and induced into general anesthesia. The abdomen is prepped and draped. Initial trocar was placed in the midline and just to the right of the linea alba. Local was infiltrated and incision was made. The varies needle was introduced and insufflation was carried out. Once we had adequate distention of the abdomen, a 5 mm optical trocar was placed under direct visualization. The abdomen was insufflated. A right-sided 8 mm robotic trocar was then placed under direct visualization. Similarly a left-sided 8 mm robotic trocar was placed. The 5 mm trocar was then replaced with an 8 mm robotic trocar. The patient was placed in Trendelenburg. The robot was brought into the field. The camera arm was docked and the camera was targeted. We then placed in position the other 2 robotic instruments. The surgeon left the sterile field and went to the robotic console. A peritoneal flap was developed at about the level of the anterior superior iliac spine. Flap was dissected free from the anterior abdominal wall. It was dissected down to the hernia sac. Dissection was then carried out more medially. Dissection was carried down to the previously placed mesh and the left rectus medial border was exposed. We continued dissection and exposed the right rectus. There was a large hernia sac. I then began dissecting some of the hernia sac from the inferior epigastric vessels. We looked lateral to the hernia sac and dissected the hernia sac off the abdominal wall. The sac was then carefully dissected free from the spermatic cord vessels. Additional dissection of the sac was carried out and it was dissected out of the internal ring. Progressing medially to the inferior epigastric vessels, the sac was dissected and a direct hernia was also noted. The hernia was a combination of both a direct and an indirect hernia. The sac was carefully dissected from the direct hernia and the transversalis fascia was dissected off the sac. I then dissected circumferentially around the hernia sac on the medial aspect. I went back to the lateral aspect of the sac and then carefully dissected it free from the retroperitoneal tissues as well as from the cord structures. Returning to the medial side of the inferior epigastric vessels, I was then able to dissect down to the pubis and Beto's ligament. I exposed the midline of the pubis and also dissected posteriorly on the pubis and Beto's ligament so there was about a 2 cm area posterior to these structures. I elevated the hernia sac and noted that we had a good 4 cm from the internal ring to the posterior aspect of dissection. A 17 x 12 cm 3DMax mid was then introduced into the field. It was positioned such that it covered both the direct and indirect spaces. The medial aspect of the mesh extended about 2 cm posterior to the pubis. 3-0 Vicryl was then used to secure the mesh to the pubis. 3-0 Vicryl sutures were then placed anteriorly both medial and lateral to the inferior epigastric vessels to further secure the mesh on each side. I checked the lower most extent of the mesh and it appeared to be satisfactory. The mesh la
== END 2022-11-11 11:55 | disposition home or self-care (01) ==
PROVIDERS: PCP Emergency Medicine; Visit Provider Surgery
PROC: 8E0Y4CZ Robotic Assisted Procedure of Lower Extremity, Percutaneous Endoscopic Approach (ICD-10-PCS; CPT 49650; principal; 2022-11-11 07:30)
DX: K40.90 Unilateral inguinal hernia, without obstruction or gangrene, not specified as recurrent (principal); I10 Essential (primary) hypertension; G47.33 Obstructive sleep apnea (adult) (pediatric); E78.5 Hyperlipidemia, unspecified; K21.9 Gastro-esophageal reflux disease without esophagitis; N40.0 Benign prostatic hyperplasia without lower urinary tract symptoms; J45.909 Unspecified asthma, uncomplicated; G25.81 Restless legs syndrome; F41.8 Other specified anxiety disorders; G47.419 Narcolepsy without cataplexy; Z86.73 Personal history of transient ischemic attack (TIA), and cerebral infarction without residual deficits; Z79.82 Long term (current) use of aspirin; E66.9 Obesity, unspecified; Z68.33 Body mass index [BMI] 33.0-33.9, adult
CPT/HCPCS: 49650; S2900; A9270; C1781; J0330; J0690; J1100; J1170; J1885; J2250; J2371; J2405; J2704; J3010; J7030; J7120

== ENCOUNTER 2022-11-18 10:55 | Emergency (ER) | payer MEDICARE, SELFPAY ==
--- NOTE | ~2022-11-18 | XR_ITS ---
EXAMINATION: XR chest 1V portable DATE: 11/18/2022 11:50 INDICATION: Cough. Weakness. TECHNIQUE: A single frontal view of the chest was obtained on 2 radiographs. COMPARISON: Chest 2 views 11/05/2022 FINDINGS: There is no pneumonia, pleural effusion, or pneumothorax. The heart size is normal. IMPRESSION: 1. No acute cardiopulmonary disease. Reviewed, dictated and finalized at location A.
[2022-11-18 11:22] VITALS: BP 139/89; PULSE 87; RESP 20; TEMP 36.7; O2SAT 98
[2022-11-18 12:12] LABS: SARS-CoV-2 RNA PCR Negative (Negative)
[2022-11-18 12:15] VITALS: BP 117/83; PULSE 91; RESP 22; O2SAT 100
[2022-11-18 12:31] VITALS: BP 116/88; PULSE 87; RESP 23; O2SAT 97
--- NOTE | 2022-11-18 13:39 | ED.GENADULT ---
HPI - General Adult General Chief complaint: Upper Respiratory Infection Stated complaint: sob Time Seen by Provider: 11/18/22 12:04 History of Present Illness HPI narrative: 72-year-old male present to the emergency department for evaluation of increased cough and congestion over the course of the last week. Patient did take a home COVID test that was negative. Patient reports sore throat cough congestion. Patient reports he did have some generalized weakness on Wednesday but states since then he has been able to ambulate without difficulty and is able to care for himself at home. Related Data Home Medications Medication Instructions Recorded Confirmed duloxetine 20 mg capsule,delayed 20 mg PO BID 01/31/19 11/11/22 release modafinil 200 mg tablet 200 mg PO QAM 01/31/19 10/29/22 omeprazole 40 mg capsule,delayed 40 mg PO QMWFSU 01/31/19 10/29/22 release trazodone 100 mg tablet 50 mg PO HS 01/31/19 10/29/22 atorvastatin 20 mg tablet 20 mg PO DAILY 09/13/19 10/29/22 losartan 50 mg tablet 50 mg PO DAILY 02/22/20 10/29/22 ascorbic acid (vitamin C) 500 mg 500 mg PO DAILY 10/29/22 11/11/22 capsule cevimeline 30 mg capsule 30 mg PO TID 10/29/22 10/29/22 cholecalciferol (vitamin D3) 125 125 mcg PO DAILY 10/29/22 11/11/22 mcg (5,000 unit) capsule cyanocobalamin (vitamin B-12) 5,000 mcg PO DAILY 10/29/22 11/11/22 5,000 mcg capsule magnesium 250 mg tablet 250 mg PO DAILY 10/29/22 11/11/22 meloxicam 15 mg tablet 15 mg PO DAILY 10/29/22 10/29/22 mirabegron 50 mg tablet,extended 50 mg PO QAM 10/29/22 10/29/22 release 24 hr (Myrbetriq) omega-3 fatty acids 1,000 mg PO DAILY 10/29/22 11/11/22 tamsulosin 0.4 mg capsule 0.4 mg PO HS 10/29/22 10/29/22 Allergies Allergy/AdvReac Type Severity Reaction Status Date / Time No Known Allergies Allergy Verified 11/18/22 12:15 Review of Systems Review of Systems: All systems reviewed & are unremarkable except as noted in HPI and below PMFSH Past Medical History Medical History (Updated 11/18/22 @ 13:49 by Bryan Wills MD) Asthma Benign prostatic hyperplasia Depression with anxiety Dyslipidemia Gastroesophageal reflux disease History of kidney stones Hypertension Narcolepsy Obstructive sleep apnea Compliant with CPAP at nighttime. Restless leg syndrome Seasonal allergies TIA (transient ischemic attack) x3 Surgical History Surgical History History of left inguinal hernia repair History of lithotripsy Status post excision of lipoma Posterior neck. Family History Family History Father Diabetes mellitus Heart disease Mother Heart disease Sibling Leukemia Father Diabetes mellitus, Onset Age: 85 Acute myocardial infarction, Onset Age: 85 Mother Diabetes mellitus, Onset Age: 87 Acute myocardial infarction, Onset Age: 87 Sibling Family history of malignant neoplasm Other Family history of cardiovascular disease Family history of congenital heart disease Hypertension Social History Social History Social History: Surrogate decision maker: Susu Hurley, sister. Code status: Full code. Smoking status: Never smoker Second hand tobacco smoke exposure: Yes Alcohol intake: never Drinks per week: 0 Substance use: never Substance use type: does not use Lack of Transportation: No Lack of Food: Sometimes True Current Housing: I Have Housing Concerned About Future Housing: Decline to Answer Difficulty Paying Gas/Electric Bills: YES Difficulty Paying for Meds: No Currently Unemployed: No Education: High School Diploma/GED Difficulty w/ Childcare or Family Care: No Living arrangements: alone Additional living arrangements comments: The patient lives in his own home in [facility]. Additional occupation/education comments: He cl
[2022-11-18 13:42] LABS: Strep Group A RT-PCR NOT DETECTED (Negative)
[2022-11-18] MEDS: AMOXICILLIN/CLAVULANATE K 875-125 MG TAB 1 TABLET PO (14:06)
[2022-11-18] MEDS: AZITHROMYCIN 250 MG TABLET 500 MG PO (14:06)
[2022-11-18 14:10] VITALS: BP 122/78; PULSE 88; RESP 16; O2SAT 96
== END 2022-11-18 14:10 | disposition home or self-care (01) ==
PROVIDERS: Preventive Medicine Aerospace Medicine; Emergency Provider Emergency Medicine; PCP Emergency Medicine
DX: R05.9 Cough, unspecified (principal); R53.1 Weakness; R09.89 Other specified symptoms and signs involving the circulatory and respiratory systems; Z20.822 Contact with and (suspected) exposure to COVID-19; J45.909 Unspecified asthma, uncomplicated; I10 Essential (primary) hypertension; E78.5 Hyperlipidemia, unspecified; N40.0 Benign prostatic hyperplasia without lower urinary tract symptoms; G47.33 Obstructive sleep apnea (adult) (pediatric); G25.81 Restless legs syndrome; K21.9 Gastro-esophageal reflux disease without esophagitis; Z86.73 Personal history of transient ischemic attack (TIA), and cerebral infarction without residual deficits; Z87.442 Personal history of urinary calculi; Z77.22 Contact with and (suspected) exposure to environmental tobacco smoke (acute) (chronic)
CPT/HCPCS: 71045; 87635; 87651; 99283; A9270

== ENCOUNTER 2022-12-22 09:20 | Outpatient (CLI) | payer MEDICARE, SELFPAY ==
--- NOTE | ~2022-12-22 | US_ITS ---
Ultrasound of the right groin CLINICAL HISTORY: Pain, mass, status post hernia repair TECHNIQUE: Real-time sonographic imaging of the right groin region was performed. FINDINGS: At the area of clinical concern, there is a 9.4 x 5.0 x 6.6 cm mass with multiple cystic co mponents and internal septations and low-level echoes. There is no internal vascularity within the [place] on color imaging. IMPRESSION: 9.4 x 5.0 x 6.6 cm complex cystic mass, as detailed above. Given appearance and history of recent beatriz dennis, this most likely represents a large hematoma. Correlate clinically. Clinical follow-up advised. If the lesion persists or fails to resolve, then repeat imaging and/or tissue sampling should be con sidered. Reviewed, dictated and finalized at [facility]. IMPRESSION: 9.4 x 5.0 x 6.6 cm complex cystic mass, as detailed above. Given appearance and history of recent surgery, this most likely represents a large hematoma. Corre late clinically. Clinical follow-up advised. If the lesion persists or fails to resolve, then repeat imaging and/or tissue sampling should be considered.
== END 2022-12-22 09:21 | disposition home or self-care (01) ==
LOC: ANHIMG 09:22
PROVIDERS: PCP Emergency Medicine; Visit Provider Surgery
DX: Z87.19 Personal history of other diseases of the digestive system (principal); Z98.890 Other specified postprocedural states; K40.90 Unilateral inguinal hernia, without obstruction or gangrene, not specified as recurrent
CPT/HCPCS: 76882

== ENCOUNTER 2023-05-19 10:41 | Outpatient (CLI) | payer MEDICARE, SELFPAY ==
--- NOTE | 2023-05-19 11:00 | NEURO_ITS ---
Impression: # Complains of numbness/pain in feet. # Axonal motor/sensory neuropathy. # Needle/EMG exam abnormal. # Clinical correlation recommended. Nerve Conduction Studies Anti Sensory Summary Table Stim Site NR Peak (ms) P-T Amp (?V) Site1 Site2 Delta-P (ms) Dist (cm) Jayant (m/s) Left Sup Fibular Anti Sensory (Ant Lat Mall) NO RESPONSE 14 cm NR 14 cm Ant Lat Mall 16.0 Right Sup Fibular Anti Sensory (Ant Lat Mall) NO RESPONSE 14 cm NR 14 cm Ant Lat Mall 16.0 Left Sural Anti Sensory (Lat Mall) NO RESPONSE Calf NR Calf Lat Mall 16.0 Right Sural Anti Sensory (Lat Mall) NO RESPONSE Calf NR Calf Lat Mall 16.0 Motor Summary Table Stim Site NR Onset (ms) O-P Amp (mV) Site1 Site2 Delta-0 (ms) Dist (cm) Jayant (m/s) Left Peroneal Motor (Vastus Med) Ankle 4.7 0.9 Popit Ankle 10.8 42.0 39 Popit 15.5 0.4 Right Peroneal Motor (Vastus Med) Ankle 4.3 1.3 Popit Ankle 9.5 39.0 41 Popit 13.8 0.4 Left Tibial Motor (Abd Penn Brev) Ankle 4.7 2.3 Knee Ankle 11.4 42.0 37 Knee 16.1 0.9 Right Tibial Motor (Abd Penn Brev) Ankle 4.8 3.1 Knee Ankle 10.7 43.0 40 Knee 15.5 1.0 F Wave Studies NR F-Lat (ms) L-R F-Lat (ms) Left Peroneal (Mrkrs) (EDB) 58.01 0.00 Right Peroneal (Mrkrs) (EDB) 58.01 0.00 Left Tibial (Mrkrs) (Abd Hallucis) 59.11 1.05 Right Tibial (Mrkrs) (Abd Hallucis) 58.06 1.05 EMG Side Muscle Nerve Root Ins Act Fibs Amp Dur Recrt Comment Right AntTibialis Dp Br Fibular L4-5 Nml Nml Nml Nml Nml Right Gastroc Tibial S1-2 Nml Nml Nml Nml Nml Right Fibularis Long Sup Br Fibular L5-S1 Nml Nml Nml Nml Nml Right Flex Dig Long Tibial L5-S2 Nml Nml Nml >12ms +1 Right Ext Dig Brev Dp Br Fibular L5, S1 Nml Nml Nml >12ms +2 Left AntTibialis Dp Br Fibular L4-5 Nml Nml Nml Nml Nml Left Gastroc Tibial S1-2 Nml Nml Nml Nml Nml Left Fibularis Long Sup Br Fibular L5-S1 Nml Nml Nml Nml Nml Left Flex Dig Long Tibial L5-S2 Nml Nml Nml >12ms +1 Left Ext Dig Brev Dp Br Fibular L5, S1 Nml Nml Nml >12ms +2 MTDD
== END 2023-05-19 10:42 | disposition home or self-care (01) ==
LOC: ANHNEURO 10:43
PROVIDERS: Visit Provider Student in an Organized Health Care Education/Training Program
DX: G62.9 Polyneuropathy, unspecified (principal); R94.131 Abnormal electromyogram [EMG]
CPT/HCPCS: 95886; 95910

== ENCOUNTER 2023-06-16 12:40 | Emergency (ER) | payer MEDICARE, SELFPAY ==
--- NOTE | ~2023-06-16 | XR_ITS ---
XR chest 2V DATE: 06/16/2023 15:16 INDICATION: Cough for one week. Fatigue. Weakness. TECHNIQUE: AP and lateral views COMPARISON: None FINDINGS: Heart size is within normal range. There is aortic tortuosity. No hilar or mediastinal enla rgement is detected. No pulmonary infiltrate or consolidation, pleural effusion or pulmonary mass congestion or pneumothor ax is detected. Degenerative spurring of the lower cervical and thoracic spine. Bilateral prominent rotator cuff atro phy. Osteopenia. IMPRESSION: No active cardiopulmonary disease Bilateral chronic rotator cuff atrophy Degenerative spurring of the lower cervical and thoracic spine Reviewed, dictated and finalized at location B.
[2023-06-16 12:43] VITALS: BP 156/76; PULSE 92; RESP 20; TEMP 37.3; O2SAT 100
[2023-06-16 14:10] VITALS: PULSE 89
[2023-06-16 14:19] LABS: Basophils Percent Auto 0.4 % (0.2-1.2); Eosinophils Absolute Auto 0.1 K/mm3 (0-0.3); Eosinophils Percent Auto 1.6 % (0-4.4); Hematocrit 40.1 % (42.0-52.0); Hemoglobin 13.2 g/dL (14.0-18.0); Immature Granulocyte Absolute 0.03 K/mm3 (0.00-0.031); Immature Granulocyte Percent A 0.4 % (0-0.5); Mean Corpuscular HGB Conc 32.9 g/dl (32-36); Mean Corpuscular Hemoglobin 29.9 pg (26-34); Mean Corpuscular Volume 90.9 fl (80-100); Mean Platelet Volume 9.7 fl (7.4-10.4); Monocytes Absolute Auto 0.7 K/mm3 (0.1-0.6); Monocytes Percent Auto 10.2 % (2.6-8.5); Neutrophils Absolute Auto 5.2 K/mm3 (1.3-6.7); Neutrophils Percent Auto 78.4 % (45.5-73.1); Platelet Count Result 159 k/mm3 (150-375); Red Blood Count 4.41 M/mm3 (4.6-6.20); Red Cell Distribution Width 13.7 % (11.5-14.5); White Blood Count 6.7 K/mm3 (4.5-10.0)
--- NOTE | 2023-06-16 14:42 | ECG_ITS ---
Measurements Intervals [place] Rate: 84 P: 50 [place]: 147 QRS: -9 QRSD: 84 T: 26 QT: 329 QTc: 391 Interpretive Statements SINUS RHYTHM WITH OCCASIONAL SUPRAVENTRICULAR PREMATURE COMPLEXES BORDERLINE ECG COMPARED TO ECG 11/05/2022 08:10:54 PREMATURE ATRIAL CONTRACTIONS APPRECIATED Electronically Signed On 06-16-2023 14:55:05 CDT by Km Wolfe M.D.
[2023-06-16 14:54] VITALS: PULSE 85; RESP 19
[2023-06-16] MEDS: IPRATROPIUM 0.5 MG/ALBUTEROL SULFATE 2.5 MG AMPUL.NEB 3 ML INHALATION (14:54)
[2023-06-16 14:55] LABS: Influenza A QL RT-PCR Positive (Negative); Influenza B QL RT-PCR Negative (Negative); RSV RNA, RT-PCR Negative (Negative); SARS-CoV-2 RNA PCR Negative (Negative)
[2023-06-16 15:00] VITALS: PULSE 83; RESP 24
--- NOTE | 2023-06-16 15:03 | ED.GENADULT ---
HPI - General Adult General Chief complaint: Weakness Stated complaint: cough, weakness Time Seen by Provider: 06/16/23 14:06 History of Present Illness HPI narrative: Emiliano Flores is a 72 y/o male with PMhx of gerd / htn who states that he has had a productive cough / body aches for the past 3-4 days. His PCP sent him here to get evaluated since he was not feeling well. He denies any chest pain. Reports of all over body aches. Related Data Home Medications Medication Instructions Recorded Confirmed duloxetine 20 mg capsule,delayed 20 mg PO BID 01/31/19 01/25/23 release modafinil 200 mg tablet 200 mg PO QAM 01/31/19 01/25/23 omeprazole 40 mg capsule,delayed 40 mg PO QMWFSU 01/31/19 01/25/23 release trazodone 100 mg tablet 50 mg PO HS 01/31/19 01/25/23 atorvastatin 20 mg tablet 20 mg PO DAILY 09/13/19 01/25/23 losartan 50 mg tablet 50 mg PO DAILY 02/22/20 01/25/23 ascorbic acid (vitamin C) 500 mg 500 mg PO DAILY 10/29/22 01/25/23 capsule cholecalciferol (vitamin D3) 125 125 mcg PO DAILY 10/29/22 01/25/23 mcg (5,000 unit) capsule cyanocobalamin (vitamin B-12) 5,000 mcg PO DAILY 10/29/22 01/25/23 5,000 mcg capsule mirabegron 50 mg tablet,extended 50 mg PO QAM 10/29/22 01/25/23 release 24 hr (Myrbetriq) omega-3 fatty acids 1,000 mg PO DAILY 10/29/22 01/25/23 tamsulosin 0.4 mg capsule 0.4 mg PO HS 10/29/22 01/25/23 Allergies Allergy/AdvReac Type Severity Reaction Status Date / Time No Known Allergies Allergy Verified 06/16/23 14:10 Review of Systems Review of Systems: All systems reviewed & are unremarkable except as noted in HPI and below PMFSH Past Medical History Medical History Asthma Benign prostatic hyperplasia Depression with anxiety Dyslipidemia Gastroesophageal reflux disease History of kidney stones Hypertension Narcolepsy Obstructive sleep apnea Compliant with CPAP at nighttime. Restless leg syndrome Seasonal allergies TIA (transient ischemic attack) x3 Surgical History Surgical History History of left inguinal hernia repair History of lithotripsy Status post excision of lipoma Posterior neck. Family History Family History Father Diabetes mellitus Heart disease Mother Heart disease Sibling Leukemia Father Diabetes mellitus, Onset Age: 85 Acute myocardial infarction, Onset Age: 85 Mother Diabetes mellitus, Onset Age: 87 Acute myocardial infarction, Onset Age: 87 Sibling Family history of malignant neoplasm Other Family history of cardiovascular disease Family history of congenital heart disease Hypertension Social History Social History Social History: Surrogate decision maker: Susu Hurley, sister. Code status: Full code. Smoking packs per day: 0 Smoking cigarettes per day: 0.0 Years smoked: 0 Smoking pack-years: 0.00 Smoking status: Never smoker Second hand tobacco smoke exposure: Yes Alcohol intake: never Drinks per week: 0 Substance use: never Substance use type: does not use Do You Feel Safe in your Home?: Yes Lack of Transportation: No Lack of Food: Sometimes True Current Housing: I Have Housing Concerned About Future Housing: Decline to Answer Difficulty Paying Gas/Electric Bills: YES Difficulty Paying for Meds: No Currently Unemployed: No Education: High School Diploma/GED Difficulty w/ Childcare or Family Care: No Living arrangements: alone Additional living arrangements comments: The patient lives in his own home in [facility]. 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 Gender identity (if verbalized by the patient): Male Spiritual care concerns: No
[2023-06-16 15:14] LABS: Alanine Aminotransferase 29 U/L (6-50); Alkaline Phosphatase 91 U/L (38-126); Anion Gap 3 mmol/L (4-12); Aspartate Amino Transferase 34 U/L (17-59); Bilirubin,Total 0.5 mg/dL (0.2-1.3); Blood Urea Nitrogen 22 mg/dL (9-20); Calcium 8.9 mg/dL (8.4-10.2); Carbon Dioxide 29 mmol/L (22-30); Chloride 100 mmol/L (98-107); Estimated CRCL calculation 87 ml/min; Estimated Glomerular Filt Rate > 60; Glucose 93 mg/dL (65-110); Potassium 4.2 mmol/L (3.4-5.0); Sodium 132 mmol/L (137-145)
[2023-06-16] MEDS: ACETAMINOPHEN 500 MG TABLET 1000 MG PO (15:23)
[2023-06-16] MEDS: KETOROLAC 30 MG/ML VIAL (*BKC) IV PUSH (15:23)
[2023-06-16 15:24] VITALS: BP 112/62; PULSE 92; RESP 18; O2SAT 96
[2023-06-16 15:25] LABS: NT Pro B Type Natriuretic Pept 49 pg/mL (19.9-100); Troponin I < 0.012 ng/mL (0.000-0.034)
[2023-06-16] MEDS: SODIUM CHLORIDE 0.9% IV 1,000 ML 999 ML IV CONT (15:58)
[2023-06-16 16:56] VITALS: BP 107/60; PULSE 92; RESP 16; O2SAT 95
== END 2023-06-16 16:58 | disposition home or self-care (01) ==
PROVIDERS: Emergency Provider Nurse Practitioner Family
DX: J10.1 Influenza due to other identified influenza virus with other respiratory manifestations (principal); I10 Essential (primary) hypertension; K21.9 Gastro-esophageal reflux disease without esophagitis; J45.909 Unspecified asthma, uncomplicated; E78.5 Hyperlipidemia, unspecified; G47.33 Obstructive sleep apnea (adult) (pediatric); Z86.73 Personal history of transient ischemic attack (TIA), and cerebral infarction without residual deficits; Z20.822 Contact with and (suspected) exposure to COVID-19
CPT/HCPCS: 36415; 71046; 80053; 83880; 84484; 85025; 87637; 93005; 94640; 96360; 96374; 99284; A9270; J1885; J7030

== ENCOUNTER 2023-10-11 07:47 | Outpatient (CLI) | payer MEDICARE, SELFPAY ==
[2023-10-11 10:17] LABS: Basophils Percent Auto 0.5 % (0.2-1.2); Eosinophils Absolute Auto 0.1 K/mm3 (0-0.3); Eosinophils Percent Auto 1.2 % (0-4.4); Hematocrit 41.2 % (42.0-52.0); Hemoglobin 13.7 g/dL (14.0-18.0); Immature Granulocyte Absolute 0.02 K/mm3 (0.00-0.031); Immature Granulocyte Percent A 0.3 % (0-0.5); Lymphocytes Absolute Auto 1.48 K/mm3 (0.9-3.2); Lymphocytes Percent Auto 19.1 % (18.3-44.2); Mean Corpuscular HGB Conc 33.3 g/dl (32-36); Mean Corpuscular Hemoglobin 30.4 pg (26-34); Mean Corpuscular Volume 91.4 fl (80-100); Mean Platelet Volume 9.5 fl (7.4-10.4); Monocytes Absolute Auto 0.7 K/mm3 (0.1-0.6); Monocytes Percent Auto 9.2 % (2.6-8.5); Neutrophils Absolute Auto 5.4 K/mm3 (1.3-6.7); Neutrophils Percent Auto 69.7 % (45.5-73.1); Platelet Count Result 201 k/mm3 (150-375); Red Blood Count 4.51 M/mm3 (4.6-6.20); Red Cell Distribution Width 12.4 % (11.5-14.5); White Blood Count 7.8 K/mm3 (4.5-10.0)
[2023-10-11 10:25] LABS: Appearance Urine Cloudy (Clear); Bacteria Urine None Seen /hpf; Bilirubin Urine Negative (Negative); Blood Urine Negative (Negative); Color Urine Yellow (Yellow); Glucose Urine UA Negative (Negative); Ketones Urine Negative (Negative); Leukocyte Esterase Ur Negative LEU/UL (Negative); Nitrate Urine Negative (Negative); Non Pathogenic Casts 0-2; Protein Urine Negative (Negative); RBC Urine 0-2 /hpf (0-2); Specific Grav Ur 1.017 (1.001-1.035); Squamous Epithelial Cell Urine None Seen /hpf (Few); Urobilinogen Urine 0.2 mg/dL (<2.0); WBC Urine 0-5 /hpf (0-3); pH Urine 7.5 (5.0-9.0)
[2023-10-11 10:26] LABS: Add Urine Microscopic? YES
[2023-10-11 10:37] LABS: Alanine Aminotransferase 34 U/L (6-50); Albumin Level 3.9 g/dL (3.5-5.1); Alkaline Phosphatase 83 U/L (38-126); Anion Gap 9 mmol/L (4-12); Aspartate Amino Transferase 35 U/L (17-59); Bilirubin,Total 0.6 mg/dL (0.2-1.3); Blood Urea Nitrogen 19 mg/dL (9-20); Calcium 8.6 mg/dL (8.4-10.2); Carbon Dioxide 30 mmol/L (22-30); Chloride 99 mmol/L (98-107); Cholesterol 146 mg/dL (0-200); Estimated Glomerular Filt Rate > 60; Glucose 90 mg/dL (65-110); HDL Direct 43 mg/dL; Potassium 4.2 mmol/L (3.4-5.0); Sodium 138 mmol/L (137-145); Triglycerides 78 mg/dL (<150)
[2023-10-11 10:48] LABS: LDL Cholesterol Direct 82 mg/dL
[2023-10-11 11:06] LABS: Creatinine Urine 86.6 mg/dL
[2023-10-11 11:10] LABS: MALB Creatinine Ratio 11.8 mg/g (0-30); Microalbumin Urine Random 10.2 mg/L (0-16.7)
[2023-10-11 11:17] LABS: Hemoglobin A1C 5.9 % (<5.7)
[2023-10-11 11:19] LABS: Free T4 Free Thyroxine 0.85 ng/mL (0.78-2.19)
[2023-10-11 11:44] LABS: Folic Acid > 20.0 ng/mL (2.76->20)
[2023-10-12 16:47] LABS: Almond (F20) IgE 0.18 kU/L; Cashew Nut (F202) IgE <0.10 kU/L; Cashew Nut (F202) IgE Class 0; Codfish (F3) IgE <0.10 kU/L; Codfish (F3) IgE Class 0; Cow's Milk (F2) IgE <0.10 kU/L; Cow's Milk (F2) IgE Class 0; Egg White (F1) IgE <0.10 kU/L; Egg White (F1) IgE Class 0; Hazelnut (F17) IgE 0.11 kU/L; Hazelnut (F17) IgE Class 0/1; Peanut (F13) IgE 0.11 kU/L; Peanut (F13) IgE Class 0/1; Salmon (F41) IgE <0.10 kU/L; Salmon (F41) IgE Class 0; Scallop (F338) IgE 0.11 kU/L; Scallop (F338) IgE Class 0/1; Sesame Seed 0.12 kU/L; Shrimp (F24) IgE <0.10 kU/L; Soybean (F14) IgE <0.10 kU/L; Soybean (F14) IgE Class 0; Tuna (F40) <0.10 kU/L; Tuna (F40) Class 0; Walnut (F256) IgE <0.10 kU/L; Walnut (F256) IgE Class 0; Wheat (F4) IgE 0.15 kU/L; Wheat (F4) IgE Class 0/1
[2023-10-13 09:48] LABS: SS-A <1.0 NEG AI (<1.0 NEG); SS-B <1.0 NEG AI (<1.0 NEG)
[2023-10-13 12:52] LABS: Vitamin B1 32 nmol/L (8-30)
[2023-10-13 17:19] LABS: Alternaria alternata IgE <0.10 kU/L; Alternaria alternata IgE Class 0; Aspergillus fumigatus IgE <0.10 kU/L; Bermuda Grass (G2) IgE 0.23 kU/L; Bermuda Grass (G2) IgE Class 0/1; Cat Dander IgE <0.10 kU/L; Cat Dander IgE Class 0; Cladosporium herbarum IgE <0.10 kU/L; Cladosporium herbarum IgE Clas 0; Cockroach IgE Clas 0/1; Common Ragweed IgE Class 3; Cottonwood IgE <0.10 kU/L; Dermatophagoides Farinae Class 0; Dermatophagoides Pterony Class 0; Dermatophagoides Pteronyssinus <0.10 kU/L; Dog Dander IgE <0.10 kU/L; Elm (T8) IgE 0.12 kU/L; Elm (T8) IgE Class 0/1; Hickory/Pecan IgE <0.10 kU/L; Hickory/Pecan IgE Class 0; Immunoglobulin E 1342 kU/L (<OR=114); Maple Box Elder IgE Class 0; Mountain Cedar IgE 0.37 kU/L; Mountain Cedar IgE Class 1; Mouse Urine Proteins IgE <0.10 kU/L; Mouse Urine Proteins IgE Class 0; Oak IgE <0.10 kU/L; Peniciliium notatum class 0; Penicillium notatum (M1) IgE <0.10 kU/L; Rough Marsh 0.52 kU/L; Rough Marsh Elder Class 1; Rough Pigweed (W14) IgE <0.10 kU/L; Rough Pigweed (W14) IgE Class 0; Russian Thistle <0.10 kU/L; Sycamore IgE 0.11 kU/L; Sycamore IgE Class 0/1; Timothy Grass IgE Class 0/1; Walnut Tree IgE <0.10 kU/L; Walnut Tree IgE Class 0; White Ash IgE Class 0/1; White Mulberry IgE <0.10 kU/L; White Mulberry IgE Class 0
[2023-10-13 20:43] LABS: Vitamin B6 84.1 ng/mL (2.1-21.7)
[2023-10-13 21:08] LABS: Immunofixation, Serum Normal pattern.
== END 2023-10-11 07:48 | disposition home or self-care (01) ==
PROVIDERS: PCP Emergency Medicine; Visit Provider Student in an Organized Health Care Education/Training Program
DX: E78.5 Hyperlipidemia, unspecified (principal); E13.69 Other specified diabetes mellitus with other specified complication; I10 Essential (primary) hypertension; G62.9 Polyneuropathy, unspecified; F41.9 Anxiety disorder, unspecified; M12.9 Arthropathy, unspecified; K21.00 Gastro-esophageal reflux disease with esophagitis, without bleeding; F32.9 Major depressive disorder, single episode, unspecified; F32.A Depression, unspecified; J45.909 Unspecified asthma, uncomplicated; R06.02 Shortness of breath
CPT/HCPCS: 36415; 80053; 80061; 81001; 82043; 82607; 82746; 82785; 83036; 84207; 84425; 84439; 84443; 85025; 86003; 86038; 86039; 86235; 86334; 86335

== ENCOUNTER 2024-01-24 11:10 | Outpatient (CLI) | payer MEDICARE, SELFPAY ==
--- NOTE | ~2024-01-24 | CT_ITS ---
CLINICAL INDICATION: Pancreatitis COMPARISON: None. TECHNIQUE: Multiple contiguous axial images of the abdomen and pelvis were performed both prior to an d following the administration of 100 mL Omnipaque-350 intravenous contrast during an arterial and po rtal venous phase The dose-length product (DLP) was 2128.73 mGy-cm. Automated exposure control and iterative reconstruction technique were employed. FINDINGS/OBSERVATIONS: Visualized lower thorax: The bilateral lung bases are clear. The heart is of normal size, without pericardial effusion. Small hiatal hernia is present. Liver: Punctate calcifications identified within the hepatic parenchyma, suggesting prior granulomatous dise ase. The remainder of the liver enhances homogeneously. The liver is not enlarged measuring 17 cm in longitudinal dimension. Gallbladder and biliary system: The gallbladder is only minimally distended, and otherwise unremarkable. The common bile duct is enlarged and develops an eccentric taper as it enters the duodenum. The commo n bile duct measures 12.7 mm prior to its eccentric taper. The patient appears to have a double papilla (separate orifice for the common bile duct and the main pancreatic duct). Pancreas: The pancreas enhances homogeneously with ductal dilatation, primarily at the head of the pancreas. Th e main pancreatic duct measures 6.4 mm in greatest caliber in the pancreatic head. No discrete mass is identified. No peripancreatic inflammatory change is noted. No globular enlargement of the pancreas or loss of fatty lobulation is present to suggest acute pancr eatitis. Of note, no significant surrounding inflammatory change. Spleen: Punctate calcifications identified within the splenic parenchyma, suggesting prior granulomatous dise ase. The spleen otherwise enhances homogeneously and is not enlarged measuring 9 cm in longitudinal dimens ion. Kidneys: The bilateral kidneys enhance symmetrically without hydronephrosis. Multiple nonobstructing renal calculi are present. The largest on the right measures 6.4 mm and is lo cated within the interpolar region. The largest on the left measures 4 mm and is located within the l ower pole. Adrenal glands: Unremarkable. Gastrointestinal tract: Colonic diverticulosis without surrounding inflammatory change. Appendix: The appendix is not definitively visualized. However, no pericecal inflammatory change is identified suggest the presence of acute appendicitis. Vasculature: Unremarkable. No aneurysmal dilatation or significant stenosis within the abdominal aorta or bilatera l iliac vasculature. The inferior vena cava is distended appropriately and otherwise unremarkable. Lymph nodes: No pathologically enlarged or morphologically suspicious lymph nodes within the retroperitoneum or at the root of the mesentery. Two prominent celiac lymph nodes are present, the largest to the right of midline measuring 10.8 mm i n short axis dimension (axial phase arterial series, image 30). No additional peripancreatic lymph nodes are present. No periportal lymph nodes are noted. Pelvic structures: The bladder is minimally distended, and otherwise unremarkable. The prostate gland is not enlarged. Body wall and musculoskeletal: Small fat-containing umbilical hernia. 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 This is most severe at the levels of L3/L4 and L4/L5. Facet arthropathy is also present. No lytic or blastic lesions are identified. IMPRESSION: No cross-sectional imaging evidence to suggest the presence of pancreatitis. Common bile duct and main pancreatic duct dilatation are present, without a discrete mass visualized within the pancreas, although with one suspected. MRCP may be performed to confirm a double papilla, prior to ERCP, if needed for biopsy. No additional significant findings, as detailed above. Reviewed, dictated and finalized at location A. [employer] DIRECT[employer] IMPRESSION: No cross-sectional imaging evidence to suggest the presence of pancreatitis. Common bile duct and main pancreatic duct dilatation are present, without a dis crete mass visualized within the pancreas, although with one suspected. MRCP may be performed to confirm a double papilla, prior to ERCP, if needed for biopsy. No additional significant findings, as detailed above.
[2024-01-24 11:35] LABS: Estimated Glomerular Filt Rate > 60
== END 2024-01-24 11:11 | disposition home or self-care (01) ==
LOC: MICIMG 11:12
DX: K85.90 Acute pancreatitis without necrosis or infection, unspecified (principal)
CPT/HCPCS: 74178; Q9967